=== PATIENT | female | born 1970 | race Caucasian/White ===

== ENCOUNTER 2020-10-08 12:12 | Emergency (ER) | payer OTHER, SELFPAY ==
[2020-10-08 12:27] VITALS: BP 130/81; PULSE 110; RESP 20; TEMP 36.6; O2SAT 99
[2020-10-08 13:00] LABS: Basophils Absolute Auto 0.1 K/mm3 (0.0-0.1); Eosinophils Absolute Auto 0.1 K/mm3 (0-0.3); Eosinophils Percent Auto 1.8 % (0-4.4); Hematocrit 40.4 % (37.0-47.0); Hemoglobin 12.8 g/dL (12.0-15.0); Immature Granulocyte Absolute 0.01 K/mm3 (0.00-0.031); Immature Granulocyte Percent A 0.2 % (0-0.5); Lymphocytes Absolute Auto 1.31 K/mm3 (0.9-3.2); Lymphocytes Percent Auto 26.4 % (18.3-44.2); Mean Corpuscular HGB Conc 31.7 g/dl (32-36); Mean Corpuscular Hemoglobin 30.3 pg (26-34); Mean Corpuscular Volume 95.7 fl (80-100); Monocytes Absolute Auto 0.4 K/mm3 (0.1-0.6); Monocytes Percent Auto 7.7 % (2.6-8.5); Neutrophils Absolute Auto 3.1 K/mm3 (1.3-6.7); Neutrophils Percent Auto 62.9 % (45.5-73.1); Platelet Count Result 260 k/mm3 (150-375); Red Blood Count 4.22 M/mm3 (4.2-5.4); Red Cell Distribution Width 12.7 % (11.5-14.5)
[2020-10-08 13:04] LABS: Add Urine Microscopic? YES; Appearance Urine Clear (Clear); Bacteria Urine Trace /hpf; Bilirubin Urine Negative (Negative); Blood Urine 1+ (Negative); Color Urine Straw (Yellow); Glucose Urine UA Negative (Negative); Ketones Urine Negative (Negative); Leukocyte Esterase Ur Negative LEU/UL (Negative); Nitrate Urine Negative (Negative); Protein Urine Negative (Negative); Specific Grav Ur 1.009 (1.001-1.035); Squamous Epithelial Cell Urine Moderate /hpf (Few); Urobilinogen Urine Negative mg/dL (<2.0); WBC Urine 0-3 /hpf
--- NOTE | 2020-10-08 13:05 | ED.PSYCH ---
HPI - Psych General Chief Complaint: Psychiatric Symptoms Stated Complaint: psych eval Time Seen by Provider: 10/08/20 12:13 History of Present Illness HPI Narrative: Patient is a 49-year-old female with multiple personalities that presents to the ER with her therapist for concerns of suicidal ideation. Apparently the patient has 1 altered personality that wants to jump off of a bridge and has been making plans to kill the patient. She has deactivated the GPS in the patient's cell phone so she can be tracked or found. There are multiple other altered personalities that also want the patient to kill herself. 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 While in the therapist office prior to coming to the ER patient's suicidal personality came out and pulled out a razor blade and made an attempt to cut herself. Patient does have some superficial cuts from razor blade to her upper abdomen. Last hospitalization for suicidal ideation was 20 years ago. Patient reports she has been noncompliant with her mental health medication. Related Data Home Medications Medication Instructions Recorded Confirmed No Home Medications 10/08/20 10/08/20 Allergies Allergy/AdvReac Type Severity Reaction Status Date / Time No Known Allergies Allergy Verified 10/08/20 12:41 Review of Systems Review of Systems: All systems reviewed & are unremarkable except as noted in HPI and below Constitutional: Constitutional: Denies chills, Denies fever(s) and Denies weakness Cardiovascular: Cardiovascular: Denies chest pain, Denies rapid heart rate and Denies radiating jaw, neck or arm pain Gastrointestinal: Gastrointestinal: Denies abdominal pain, Denies nausea and Denies vomiting Integumentary/Breasts: Comments: Superficial cuts to abdomen. Psychiatric: Psychiatric: Denies anxiety, Reports depression, Denies homicidal ideation and Reports suicidal ideation PMFSH Past Medical History Medical History (Updated 10/08/20 @ 23:14 by Derik Verdin MD) Anorexia Depression Multiple personality disorder Surgical History Surgical History (Updated 10/08/20 @ 23:14 by Deirk Verdin MD) History of nephrectomy Social History Social History Substance use type: does not use Gender identity (if verbalized by the patient): Female Exam Narrative: Exam Narrative: GENERAL: Well-appearing, well-nourished, and in no acute distress. HEAD: Normocephalic, atraumatic. EYES: PERRL and EOMI. ENT: Mucous membranes moist. Bandage left cheek CHEST: Clear to auscultation. No respiratory distress. HEART: Regular rate and rhythm. Normal peripheral pulses. ABDOMEN: Soft, nontender, nondistended, superficial abrasions to the upper abdomen that were self-inflicted.. EXTREMITIES: Normal range of motion. No edema. SKIN: Warm, dry, no rash. NEURO: Alert and oriented x3. PSYCH: Normal mood and affect. Denies SI or HI at this time. Not currently responding to any internal stimuli and apparently is not acting as one of her altered personalities. Course Course Emergency Course: Crisis has been out and evaluated the patient and multiple alters including the ones that were most suicidal. Between the protective services social worker and the patient's therapist who is been present throughout the duration of the ED visit a safety contract has been made with the patient as well as the major player alters. Vital Signs Vital signs: Vital Signs Temperature 97.8 F 10/08/20 12:27 Pulse Rate 110 H 10/08/20 12:27 Respiratory Rate 20 10/08/20 12:27 Blood Pressure 130/81 10/08/20 12:27 Pulse Oximetry 99 10/08/20 12:27 Temperature 97.8 F 10/08/20 12:27 Pulse Rate 98 10/08/20 18:55 Respiratory Rate 20 10/08/20 18:55 Blood Pressure 128/80 10/08/20 18:55 Pulse Oximetry 99 10/08/20 18:55 MDM - Psych Lab Data Result diagrams: 10/08/20 12:52
[2020-10-08 13:11] LABS: Ethanol < 10 mg/dL (<10)
[2020-10-08 13:12] LABS: Alanine Aminotransferase 15 U/L (4-35); Albumin Level 4.4 g/dL (3.5-5.1); Alkaline Phosphatase 68 U/L (38-126); Anion Gap 5 mmol/L (8-16); Aspartate Amino Transferase 25 U/L (14-36); Bilirubin,Total 0.5 mg/dL (0.2-1.3); Blood Urea Nitrogen 13 mg/dL (7-17); Calcium 9.1 mg/dL (8.4-10.2); Carbon Dioxide 28 mmol/L (22-30); Chloride 104 mmol/L (98-107); Estimated Glomerular Filt Rate > 60; Glucose 94 mg/dL (65-105); Potassium 4.5 mmol/L (3.4-5.0); Sodium 137 mmol/L (137-145)
[2020-10-08 13:43] LABS: Thyroid Stimulating Hormone 0.787 uIU/mL (0.465-4.680)
[2020-10-08 13:51] LABS: Pregnancy On Board Control Positive; Urine Pregnancy Test Negative
[2020-10-08 14:00] LABS: Amphetamine Screen Urine Negative (Negative); Barbiturate Screen Urine Negative (Negative); Benzodiazepines Screen Urine Negative (Negative); Cannabinoid Screen Urine Negative (Negative); Cocaine Screen Urine Negative (Negative); Methadone Screen Urine Negative (Negative); Opiate Screen Urine Negative (Negative); Phencyclidine Screen Urine Negative (Negative)
[2020-10-08 18:55] VITALS: BP 128/80; PULSE 98; RESP 20; O2SAT 99
== END 2020-10-08 18:56 | disposition home or self-care (01) ==
PROVIDERS: Emergency Provider Emergency Medicine
DX: F44.81 Dissociative identity disorder (principal); F32.9 Major depressive disorder, single episode, unspecified; Z90.5 Acquired absence of kidney
CPT/HCPCS: 36415; 80053; 80307; 81001; 81025; 84443; 85025; 99284

== ENCOUNTER 2023-09-01 18:07 | Emergency (ER) | payer OTHER, SELFPAY ==
--- NOTE | ~2023-09-01 | XR_ITS ---
EXAMINATION: XR knee LT min 4V DATE: 09/01/2023 18:25 INDICATION: Left knee pain. TECHNIQUE: 4 views of left knee were obtained. COMPARISON: None. FINDINGS: Bone alignment is normal. No fracture. There is mild tricompartmental osteoarthritis. No kn ee joint effusion. IMPRESSION: 1. Mild left knee osteoarthritis. Reviewed, dictated and finalized at location E.
[2023-09-01 18:12] VITALS: BP 117/74; PULSE 106; RESP 20; TEMP 36.6; O2SAT 100
--- NOTE | 2023-09-01 18:27 | ED.LOWEXIN ---
HPI - Extremity Injury (Lower) General Chief Complaint: Extremity Injury, Lower Stated Complaint: left knee pain and swelling Time Seen by Provider: 09/01/23 18:18 History of Present Illness HPI Narrative: 52-year-old female with a history of depression, nephrectomy presents to the emergency department with left knee pain for 1 day. Patient states she has been having some intermittent problems with her left knee, however yesterday after she did some agility training with her shoulder the she walked to her car in the parking lot and felt some pain to the posterior aspect of her knee. States she took 1 dose of Tylenol this morning without improvement. She has been icing and resting without improvement. She reports pain with flexion and ambulation. Pain is improved with extension of her knee. Denies pain to the remainder of her extremity, denies lower extremity edema. No history of DVT, denies recent long car or plane rides, no recent surgeries or hospitalizations. Related Data Home Medications Medication Instructions Recorded Confirmed No Home Medications 10/08/20 10/08/20 Allergies Allergy/AdvReac Type Severity Reaction Status Date / Time No Known Allergies Allergy Verified 09/01/23 18:14 Review of Systems Review of Systems: CONSTITUTIONAL: Denies fever, chills, or sweats. EYES: Denies visual changes, redness, or discharge. ENT: Denies rhinorrhea, congestion, sore throat, or otalgia. CARDIOVASCULAR: Denies chest pain, palpitations, or edema. RESPIRATORY: Denies cough or dyspnea. GASTROINTESTINAL: Denies abdominal pain, nausea, vomiting, or diarrhea. GENITOURINARY: Denies dysuria or hematuria. SKIN: Denies rash or itching. MUSCULOSKELETAL: See HPI NEUROLOGIC: Denies headache, numbness, or weakness. PSYCHIATRIC: Denies anxiety or depression. [facility] Past Medical History Medical History Anorexia Depression Multiple personality disorder Surgical History Surgical History History of nephrectomy Social History Social History Substance use type: does not use Gender identity (if verbalized by the patient): Female Exam Narrative: GENERAL: Well-appearing, well-nourished, and in no acute distress. HEAD: Normocephalic, atraumatic. NECK: Supple. CHEST: Clear to auscultation. No respiratory distress. HEART: Regular rate and rhythm. No murmur heard. Normal peripheral pulses. EXTREMITIES: LLE: Tenderness to the left popliteal fossa without obvious deformity or overlying skin changes. Full active and passive range of motion of knee. Negative anterior posterior drawer. No laxity of varus or valgus stress. No tenderness remainder of lower extremity. No edema. DP pulse 2 +. Sensation intact. Negative Homans. No warmth or erythema to knee. No effusion. SKIN: Warm, dry, no rash. NEURO: No focal deficits. Alert and oriented x3 Course Vital Signs Vital signs: Vital Signs Temperature 98 F 09/01/23 18:12 Pulse Rate 106 H 09/01/23 18:12 Respiratory Rate 20 09/01/23 18:12 Blood Pressure 117/74 09/01/23 18:12 Pulse Oximetry 100 09/01/23 18:12 Oxygen Delivery Room Air 09/01/23 18:12 Temperature 98 F 09/01/23 18:12 Pulse Rate 106 H 09/01/23 18:12 Respiratory Rate 20 09/01/23 18:12 Blood Pressure 117/74 09/01/23 18:12 Pulse Oximetry 100 09/01/23 18:12 Oxygen Delivery Room Air 09/01/23 18:12 MDM - Extremity Injury (Lower) MDM Narrative Medical decision making narrative: 52-year-old female presents emergency department for left posterior knee pain for 1 day. Triage vital significant for tachycardia 106, otherwise unremarkable. Exam is significant for the above. She is neurovascularly intact. X-rays of the knee show mild osteoarthritis. Given area of pain, D-dimer lab work obtained wh
[2023-09-01] MEDS: ACETAMINOPHEN 500 MG TABLET 1000 MG PO (19:16)
[2023-09-01 19:28] LABS: Basophils Absolute Auto 0.1 K/mm3 (0.0-0.1); Basophils Percent Auto 0.7 % (0.2-1.2); Eosinophils Absolute Auto 0.2 K/mm3 (0-0.3); Eosinophils Percent Auto 2.4 % (0-4.4); Hematocrit 38.1 % (37.0-47.0); Hemoglobin 12.4 g/dL (12.0-15.0); Immature Granulocyte Absolute 0.01 K/mm3 (0.00-0.031); Immature Granulocyte Percent A 0.1 % (0-0.5); Lymphocytes Absolute Auto 2.65 K/mm3 (0.9-3.2); Lymphocytes Percent Auto 38.1 % (18.3-44.2); Mean Corpuscular HGB Conc 32.5 g/dl (32-36); Mean Corpuscular Hemoglobin 30.5 pg (26-34); Mean Corpuscular Volume 93.6 fl (80-100); Mean Platelet Volume 9.4 fl (7.4-10.4); Monocytes Absolute Auto 0.4 K/mm3 (0.1-0.6); Monocytes Percent Auto 6.3 % (2.6-8.5); Neutrophils Absolute Auto 3.6 K/mm3 (1.3-6.7); Neutrophils Percent Auto 52.4 % (45.5-73.1); Platelet Count Result 292 k/mm3 (150-375); Red Blood Count 4.07 M/mm3 (4.2-5.4); Red Cell Distribution Width 12.8 % (11.5-14.5)
[2023-09-01 19:39] LABS: Prothrombin Time 13.7 Seconds (11.1-14.7)
[2023-09-01 19:40] LABS: Partial Thromboplastin Time 27.9 Seconds (22.3-36.8)
[2023-09-01 19:47] LABS: D Dimer < 0.27 ug/mL (<0.48)
[2023-09-01 19:51] LABS: Anion Gap 3 mmol/L (4-12); Blood Urea Nitrogen 25 mg/dL (7-17); Calcium 9.7 mg/dL (8.4-10.2); Carbon Dioxide 30 mmol/L (22-30); Chloride 107 mmol/L (98-107); Estimated CRCL calculation 62 ml/min; Estimated Glomerular Filt Rate > 60; Glucose 98 mg/dL (65-110); Potassium 4.1 mmol/L (3.4-5.0); Sodium 140 mmol/L (137-145)
== END 2023-09-01 20:26 | disposition home or self-care (01) ==
PROVIDERS: Emergency Provider Physician Assistant
DX: M25.562 Pain in left knee (principal); Z90.5 Acquired absence of kidney; M17.12 Unilateral primary osteoarthritis, left knee
CPT/HCPCS: 36415; 73564; 80048; 85025; 85380; 85610; 85730; 99283; A9270

== ENCOUNTER 2024-01-27 08:00 | Outpatient (RCR) | payer OTHER, SELFPAY ==
--- NOTE | 2023-12-27 13:36 | OPREHPOC ---
Outpatient Therapy Plan of Care This is a Multidisciplinary Plan of Care that may contain components documented by all disciplines (PT, OT, and ST.) PT Problem 1 PT Problem #1 Knowledge Deficit PT Goal 1 Goal / Goal Update *indep with HEP Target Visit 8 PT Problem 2 PT Problem #2 Pain PT Goal 1 Goal / Goal Update 1* pt report pain at worst rating of 2/10 2* pt report time of NO pain in knee 3* self assessment LE functional scale of 18% limitation in activity level Target Visit 8 PT Problem 3 PT Problem #3 Impaired Strength PT Goal 1 Goal / Goal Update increase strength of L hip and knee, to improve stability and support to knee 1* mat exercises x 20 reps with good stability 2* single leg standing x 20 seconds with goot stability Target Visit 8
--- NOTE | 2023-12-27 13:36 | PTOPEVAL1 ---
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 The same thing happened about 6 months ago resolved without any treatment for it. LE functional scale of 29% limitation in activity level. Pain has decreased since onset and her activity is returning to her normal activity, but still having some pain. With the evaluation; she has weakness over L hip and knee, with single leg standing time of 4 seconds; good flexibility of hip and knee without pain; poor standing position of hip and knee with hip IR and medial patellar placement; Skilled PT services are indicated for modalities for pain, therapeutic exercises to strengthen hip and knee with education for HEP and self care of pain. Plan of Care Interventions Electrical Stimulation,Hot Pack/Cold Pack,Manual Therapy,Neuro Re-education,Patient Education,Therapeutic Activities,Therapeutic Exercise,Ultrasound,Other Other Interventions taping PT Services Indicated Yes Treatment Frequency and 1-2x/wk for 8 visits Duration These treatments will address the objective and functional deficits as defined above. The patient will be advanced safely and appropriately in order for the patient to progress towards his/her prior level of function. Additional exercises will be introduced and as well as a comprehensive home exercise program upon discharge, if needed, ?to ensure carryover of functional gains achieved in the clinic. This treatment plan has been reviewed and agreement upon by the patient.
--- NOTE | 2024-01-13 07:33 | PCPTNOTE ---
Called and canceled due to migraine. AKS
--- NOTE | 2024-01-27 09:02 | PTOPDC ---
Assessment and note entered by Steph Ferrera, PT Discharge Report Assessment Status Discharge Diagnosis L knee pain ICD-10 Condition Codes (PT) Pain in left knee M25.562 Onset Dec 05, 2023 Subjective Information going to pain management for back in consult in Nov; knee is better, not swelling as much, but still not able to run through an entire dog agility course, 2-3 minutes of running. when on vacation--more driving and walking, knee was swollen over the front and back of the knee; if I cane, Want to continue therapy to get knee stronger and be able to run agility easier; Reported Pain Level Pain Score Self Report Additional Pain Score Comments pain range in the past week 0-7/10 increase pain: running, stairs decrease pain: sit/rest, exercises, ice, tylenol about 1x/day; kinesiotape less swelling in knee kinesiotape Y over knee- educated pt on how to apply Assessment PT Clinical Summary Rosa has received 7 PT sessions. Compared to the initial evaluation: pain from 1-4/10 to 0-7/10 with increased activity level and return to dog agility classes; self assessment rating with LE functional scale from 29% to 26% limitation in activity level; increase strength of L hip and knee; education for HEP and pain management. The goals were partially met. Discharge PT. She is to continue with her HEP and increase running as tolerated, using knee brace and kinesiotape PRN. Plan of Care PT Services Indicated No
== END 2024-01-27 11:50 | disposition home or self-care (01) ==
LOC: ANHPT 08:00
PROVIDERS: Visit Provider Physician Assistant Surgical
DX: M25.562 Pain in left knee (principal)
CPT/HCPCS: 97110; 97140; 97161; 97530

== ENCOUNTER 2024-05-01 11:54 | Emergency (ER) | payer OTHER, SELFPAY ==
--- NOTE | ~2024-05-01 | CT_ITS ---
History: Remote history of a fall PROCEDURE: CT cervical spine without intravenous contrast. COMPARISON: None TECHNIQUE: Multiple contiguous axial images of the cervical spine were performed without the administration of i ntravenous contrast. DLP: 141 mGy-cm FINDINGS: Straightening of the normal curvature of the cervical spine is identified, likely muscular in origin. No acute fractures are present. The bilateral lung apices are unremarkable. No soft tissue abnormality is present. The airway is patent. Impression: Straightening of the normal curvature of the cervical spine, likely muscular in origin. No acute fracture. Reviewed, dictated and finalized at location A. BIT BUILDER Impression: Straightening of the normal curvature of the cervical spine, likely muscular in origin. No acute fracture.
--- NOTE | ~2024-05-01 | CT_ITS ---
History: Remote history of a fall PROCEDURE: CT head without contrast. COMPARISON: None TECHNIQUE: Axial imaging of the head performed from the skull base to the vertex without IV contrast. Sagittal a nd coronal reformations obtained. DLP: 681 mGy-cm FINDINGS: The ventricles are normal in size, shape and position. There is no mass, mass effect or midline shift. There is no abnormal extra-axial fluid collection or intracranial hemorrhage. Visualized paranasal sinuses are clear. The mastoid air cells are well aerated. No acute displaced fractures within the overlying cranium. Impression: No acute intracranial hemorrhage or suspicious mass effect. Reviewed, dictated and finalized at location A. RONMENTAL ENGINEERING ASSISTANT Impression: No acute intracranial hemorrhage or suspicious mass effect.
--- OUTSIDE RECORDS SUMMARY | 2024-05-01 11:58 | XMS_ITS | Referral Summary ---
Author Organization [facility]Care Care Team Providers Care Environmental Solutions Engineer Name Role Phone Kimberly Lozano MD Primary Care Prov ider Encounters Date Type Department Care Team Description 04/24/2024 7:26 AM DESIGNER ARCHITECT - 04/24/2024 11:59 PM DESIGNER ARCHITECT Hospital Encounter [facility] [address] [place] [address] [facility] [address] [place] [address] Bradford Tapia MD Lumbar radiculopathy (Primary Dx) Discharge Disposition: Discharge to home or self care 02/14/2024 9:07 PM DESIGNER ARCHITECT - 02/14/2024 11:59 PM DESIGNER ARCHITECT Hospital Encounter [facility] [address] [place] [id number] Discharge Disposition: Discharge to home or self care 02/14/2024 2:50 PM DESIGNER ARCHITECT - 02/14/2024 11:59 PM DESIGNER ARCHITECT Hospital Encounter [facility] [address] [place] [address] [facility] [address] [place] [address] Bradford Tapia MD Lumbar radiculopathy Discharge Disposition: Discharge to home or self care 02/11/2024 Telephone [facility] [address] [place] [address] [facility] [address] [place] [address] Bradford Tapia MD PM[facility] Preprocedure 02/05/2024 12:40 PM DESIGNER ARCHITECT - 02/05/2024 11:59 PM DESIGNER ARCHITECT Hospital Encounter [facility] [address] [facility] [address] [place] [address] Bradford Tapia MD Lumbar radiculopathy (Primary Dx) Discharge Disposition: Discharge to home or self care from Last 3 Months Allergies Active Allergy Reactions Criticality Noted Date Comments Bupropion Nausea & Vomiting Low 11/29/2022 Medications acetaminophen (TYLENOL) 325 mg tablet Take 1 tablet (325 mg total) by mouth every 4 (four) hours as needed Active cyanocobalamin (Vitamin B-12) 100 mcg tablet Take 1 tablet (100 mcg total) by mouth daily Active famotidine (PEPCID) 20 mg tablet Take 1 tablet twice a day by oral route. 01/25/2020 Active fexofenadine (DRAKE) 60 mg tablet Take 1 tablet (60 mg total) by mouth daily Active fluticasone propionate (FLONASE) 50 mcg/actuation nasal spray SPRAY 1 SPRAY INTO EACH NOSTRIL EVERY DAY Active promethazine (PHENERGAN) 12.5 mg tablet TAKE 1-2 TABLETS BY MOUTH ONCE DAILY NEEDED FOR NAUSEA/MIGRA INE 01/30/2024 Active SUMAtriptan (IMITREX) 50 mg tablet TAKE 1 TABLET BY MOUTH AT ONSET OF HEADACHE. MAY REPEAT IN 24 HOURS 11/29/2023 Active FLUoxetine (PROzac) 20 mg tablet Take 2 tablets (40 mg total) by mouth daily 03/17/2024 Active Active Problems Problem Noted Date Diagnosed Date Lumbar radiculopathy 02/14/2024 Non-functioning kidney 11/26/2022 Right wrist pain 11/26/2022 Left wrist pain 11/26/2022 Carpal tunnel syndrome, bilateral 11/26/2022 Carpal tunnel syndrome, left 11/26/2022 Urinary tract infection without hematuria 2020 Eating disorder 01/23/2020 Health maintenance alteration 11/05/2019 Migraine 11/05/2019 Depressive disorder 06/27/2018 Social History Tobacco Use Types Packs/Day Years Used Date Smoking Tobacco: Never Smokeless Tobacco: Never Tobacco Cessation:Counseling Given: Not Answered AUDIT-C Answer Date Recorded Q1: How often do you have a drink containing alcohol? Never 04/24/2024 Q2: How many drinks containi ng alcohol do you have on a typical day when you are drinking? Patient does not drink Q3: How often do you have si x or more drinks on one occasion? Never 04/24/2024 Personal Safety Answer Date Recorded Have you ever been in or are you currently in a harmful physical or emotional relationship or is someone making you feel afraid or unsafe? Denies 11/29/2022 Comments No Sex and Gender Information Value Date Recorded Sex Assigned at Not on file Legal Sex Female 1:45 AM DESIGNER ARCHITECT Gender Identity Not on file Sexual Orientation Not on file Last Filed Vital Signs Vital Sign Reading Time Taken Comments Blood Pressure 105/68 04/24/2024 7:37 AM DESIGNER ARCHITECT Pulse 83 04/24/2024 7:37 AM DESIGNER ARCHITECT Temperature 36.5 ??C (97.7 ??F) 04/24/2024 7:37 AM CS T Respiratory Rate 14 04/24/2024 7:37 AM DESIGNER ARCHITECT Oxygen Saturation 99% 04/24/2024 7:37 AM DESIGNER ARCHITECT Inhaled Oxygen Concentration - - Weight 59 kg (130 lb) 02/14/2024 3:01 PM DESIGNER ARCHITECT Height 165.1 cm (5' 5 ) 02/14/2024 3:01 PM DESIGNER ARCHITECT Body Mass Index 21.63 02/14/2024 3:01 PM DESIGNER ARCHITECT Plan of Treatment Not on file Goals Goal Patient Goal Type Associated Problems Recent Progress Patient-Stated? Author CCM Chronic Pain Care Plan Chronic Care Management On track(2024 7:39 AM DESIGNER ARCHITECT) No Farrah Vera, RN Note: Problem: Chronic Pain Goals: 1. Minimize further functional decline 2. Maximize quality of life 3. Control pain Strategies: - Activity/exercise program recommendation - Conservative stepwise pain medicine strategy with multi-disciplinary approach - Recommend healthy lifestyle strategies and compensatory methods as needed Procedures Procedure Name Priority Date/Time Associated Diagnosis Comments NEURO MR OUTSIDE REFERENCE Routine 02/14/2024 9:07 PM DESIGNER ARCHITECT PAIN MGMT IMAGING LUMBAR/SACRAL SELECTIVE NERVE ROOT INJ (TFE) LEFT Schedule Routine, Read Routine (OP Routine) 02/14/2024 4:27 PM DESIGNER ARCHITECT Lumbar radiculopathy from Last 3 Months Results * Neuro MR Outside Reference (02/14/2024 9:07 PM DESIGNER ARCHITECT) Impressions [facility] - 02/14/2024 9:07 PM DESIGNER ARCHITECT These images are for Reference purposes only and have not been reviewed by [facility]. ??There will be no report generated by a [facility] Radiologist. Narrative [facility] - 02/14/2024 9:07 PM DESIGNER ARCHITECT EXAMINATION: ??Images For Reference Purposes Only Bradford SOTELO MRI PROCEDURES Fi nal Result [facility] * Imaging Lumbar/Sacral Selective Nerve Root INJ (TFE) Left (45873) (02/14/2024 4:27 PM DESIGNER ARCHITECT) Narrative [facility] - 02/14/2024 4:27 PM DESIGNER ARCHITECT The images from this study are not interpreted by Radiology. ??Please refer to the physician's procedure / OR operative note. Bradford Gupta MD IMG PAIN MGMT PROCEDU RES Final Result Performing Organization Address City/[facility]/ZIP Co de Phone Number [facility] from Last 3 Months Insurance [facility] Care Teams Environmental Solutions Engineer Relationship Specialty Start Date End Date Kimberly Lozano MD [address] [place] [id number] PCP - General Family Medicine 11/08/22
--- OUTSIDE RECORDS SUMMARY | 2024-05-01 11:58 | XMS_ITS | Referral Summary ---
Author Organization [facility] Posterous Address [address] [place] [address] Care Team Providers Care Golf Course Manager Name Role Phone Kimberly Lozano MD Primary Care Provider + Source Comments [facility],non-owned Affiliates and Associated Physician Practices is amultiple site organization consisting of ambulatory clinics and hospital sitesin [place], [place], [place] and [place]. This disclosure is being madepursuant to the Care Everywhere program and may not contain all information available regarding this patient. Last updated 17.[facility]erous Allergies Active Allergy Reactions Criticality Noted Date Comments Adhesive Sensitivity Rash Medium 05/03/2020 Medications * Be aware that medications may not be up to date on this document. Alwaysverify current medications with the patient. Medication Sig Dispensed Refills Start Date End Date Status SUMAtriptan (IMITREX) 25 MG tablet Take 25 mg by mouth as needed 01/07/2020 Active ARIPiprazole (ABILIFY) 5 MG tablet Take 5 mg by mouth once daily 04/20/2020 Active FLUoxetine (PROZAC) 40 MG capsule Take 40 mg by mouth once daily 04/20/2020 Active prazosin (MINIPRESS) 1 MG capsule Take 1 mg by mouth at bedtime 04/20/2020 Active fexofenadine (DRAKE) 60 MG tablet Take 60 mg by mouth once daily Active melatonin 3 MG tablet Take 6 mg by mouth at bedtime Active cyanocobalamin (VITAMIN B-12) 100 MCG tablet Take 100 mcg by mouth once daily Active acetaminophen (TYLENOL) 325 MG tablet Take 325 mg by mouth every 4 hours as needed for Fever or Pain Maximum allowable Acetaminophen amount = 4 Grams (4000 mg) / 24 hours. Active Active Problems Problem Noted Date Diagnosed Date Urinary tract infection without hematuria 2020 Non-functioning kidney Immunizations Name Administration Dates Next Due INFLUENZA VACCINE, CELL CULT URE, QUADR. (FLUCELVAX QUADRIVALENT; 6MO+) (CCIIV4) 01/23/2020 Social History Tobacco Use Types Packs/Day Years Used Date Smoking Tobacco: Never Smokeless Tobacco: Never Alcohol Use Standard Drinks/Week Comments Not Currently 0 (1 standard drink = 0.6 oz pur e alcohol) Sex and Gender Information Value Date Recorded Sex Assigned at Not on file Gender Identity Not on file Sexual Orientation Not on file Last Filed Vital Signs Vital Sign Reading Time Taken Comments Blood Pressure 133/82 06/10/2020 7:56 AM WATER TANKER DRIVER Pulse 75 06/10/2020 7:56 AM WATER TANKER DRIVER Temperature 36.1 ??C (97 ??F) 06/10/2020 7:56 AM WATER TANKER DRIVER Respiratory Rate 18 05/27/2020 11:15 AM WATER TANKER DRIVER Oxygen Saturation 100% 06/10/2020 7:56 AM WATER TANKER DRIVER Inhaled Oxygen Concentration - - Weight 55.8 kg (123 lb) 06/10/2020 7:56 AM WATER TANKER DRIVER Height 165.1 cm (5' 5 ) 06/10/2020 7:56 AM WATER TANKER DRIVER Body Mass Index 20.47 06/10/2020 7:56 AM WATER TANKER DRIVER Functional Status Functional Status Response Date of Assess ment Is person deaf or have serious hearing difficult y? No 05/27/2020 Is person blind or have serious difficulty seein g? No 05/27/2020 Does person have serious dif ficulty walking/climbing stairs? No 05/27/2020 Does person have difficulty dressing/bathing? No 05/27/2020 Does person have difficulty doing errands alone? No 05/27/2020 Cognitive Status Response Date of Assessm ent Does person have difficulty concentrating/remembering/making decisions? No 05/27/2020 Plan of Treatment Not on file Advance Directives * Full Code (Latest Code Status on File) Date Activated Date Inactivated Comments 05/26/2020 1:07 PM 05/27/2020 4:26 PM Care Teams Golf Course Manager Relationship Specialty Start Date End Date Kimberly Lozano MD [address] [place] [id number] PCP - General Family Medicine 03/14/20
--- OUTSIDE RECORDS SUMMARY | 2024-05-01 11:58 | XMS_ITS | CONTINUITY OF CARE DOCUMENT ---
Author Name [email or web address] joonshashank Address Unknown Organization [facility] Address [address] [address] [place] [address] Phone [phone] Care Team Providers Care Ditch Rider Name Role Phone Jimmie COBOS, Voilette Murphy Unavailable RANDY JUAN MD Unavailable YESSICA COBOS, RANDY Unavailable [phone] INSURANCE PROVIDERS Payer name Policy type / Coverage type [facility] [place] [employer] [place] MED[place] (2) Medicaid [id number]
--- OUTSIDE RECORDS SUMMARY | 2024-05-01 11:58 | XMS_ITS | Patient Health Summary ---
Author Organization [facility] Address [address] [place] [address] Care Team Providers Care Maintenance Service Supervisor Name Role Phone Kimberly Lozano MD Primary Care Provider + Note from [facility],non-owned Affiliates and Associated Physician Practices is amultiple site organization consisting of ambulatory clinics and hospital sitesin [place], [place], [place]. This disclosure is being madepursuant to the Care Everywhere program and may not contain all information available regarding this patient. Last updated 17.[facility] Allergies * Adhesive Sensitivity(Rash) -Medium Criticality * Skin Adhesives(Rash) -Medium Criticality,Inactive Medications * Be aware that medications may not be up to date on this document. Alwaysverify current medications with the patient. * SUMAtriptan (IMITREX) 25 MG tablet(Started 01/07/2020) Take 25 mg by mouth as needed * ARIPiprazole (ABILIFY) 5 MG tablet(Started 04/20/2020) Take 5 mg by mouth once daily * FLUoxetine (PROZAC) 40 MG capsule(Started 04/20/2020) Take 40 mg by mouth once daily * prazosin (MINIPRESS) 1 MG capsule(Started 04/20/2020) Take 1 mg by mouth at bedtime * fexofenadine (DRAKE) 60 MG tablet Take 60 mg by mouth once daily * melatonin 3 MG tablet Take 6 mg by mouth at bedtime * cyanocobalamin (VITAMIN B-12) 100 MCG tablet Take 100 mcg by mouth once daily * acetaminophen (TYLENOL) 325 MG tablet Take 325 mg by mouth every 4 hours as needed for Fever or Pain Maximum allowable Acetaminophen amount = 4 Grams (4000 mg) / 24 hours. Active Problems Problem Noted Date Diagnosed Date Urinary tract infection without hematuria 2020 Non-functioning kidney Immunizations * INFLUENZA VACCINE, CELL CULTURE, QUADR. (FLUCELVAX QUADRIVALENT; 6MO+) (CCIIV4)(Given 01/23/2020) Social History Tobacco Use Types Packs/Day Years [...] Comments Blood Pressure 133/82 06/10/2020 7:56 AM DIEING OUT MACHINE OPERATOR Pulse 75 06/10/2020 7:56 AM DIEING OUT MACHINE OPERATOR Temperature 36.1 ??C (97 ??F) 06/10/2020 7:56 AM DIEING OUT MACHINE OPERATOR Respiratory Rate 18 05/27/2020 11:15 AM DIEING OUT MACHINE OPERATOR Oxygen Saturation 100% 06/10/2020 7:56 AM DIEING OUT MACHINE OPERATOR Inhaled Oxygen Concentration - - Weight 55.8 kg (123 lb) 06/10/2020 7:56 AM DIEING OUT MACHINE OPERATOR Height 165.1 cm (5' 5 ) 06/10/2020 7:56 AM DIEING OUT MACHINE OPERATOR Body Mass Index 20.47 06/10/2020 7:56 AM DIEING OUT MACHINE OPERATOR Procedures * PREPARE RBC LEUKOREDUCED UNIT(Performed 05/28/2020) * CBC W/O DIFFERENTIAL(Performed 05/27/2020) * BASIC METABOLIC PANEL (CALCIUM TOTAL)(Performed 05/27/2020) * PATHOLOGY TISSUE(Performed 05/26/2020) Performed for Non-functioning kidney * PERIPHERAL IV NOTE(Performed 05/26/2020) * ENDOTRACHEAL TUBE NOTE(Performed 05/26/2020) * MA LAP, RADICAL NEPHRECTOMY(Performed 05/26/2020) Performed for Non-functioning kidney * TYPE + SCREEN PANEL(Performed 05/26/2020) * HCG URINE QUALITATIVE - POCT (IP) INTERFACED(Performed 05/26/2020) * HCG URINE QUAL POCT NOTIFICATION(Performed 05/26/2020) Performed for Pre-op examination * SARS-COV-2 (COVID-19) IN HOUSE(Performed 05/22/2020) Performed for Right renal mass, Pre-op testing * CULTURE URINE(Performed 05/03/2020) Performed for Right renal mass, Pre-op testing * TYPE + SCREEN PANEL(Performed 05/03/2020) Performed for Pre-op examination * BASIC METABOLIC PANEL (CALCIUM TOTAL)(Performed 05/03/2020) Performed for Right renal mass, Pre-op testing * CBC W AUTO DIFFERENTIAL(Performed 05/03/2020) Performed for Right renal mass, Pre-op testing * NM RENAL SCAN W FLOW AND FUNCTION(Performed 03/14/2020) Performed for Right flank pain, chronic * URINALYSIS AUTO - POINT OF CARE (AMB) SLU(Performed 02/22/2020) Performed for Hematuria, unspecified type Results * PREPARE (CROSSMATCH) RBC UNIT(S), 2 Units (05/28/2020 2:17 AM DIEING OUT MACHINE OPERATOR) Unit Description AS1 LR PRBC [facility] Unit ABO O [facility] Rh POS [facility] Product Number R02 [facility] Unit Donor # [id number] [facility] Code [id number] [facility] Blood Type Barcode 5100 [facility] Expiration Date S BLOOD BANK LAB Unit Description AS1 LR PRBC [facility] Unit ABO O [facility] Unit Rh POS [facility] Product Number R02 [facility] Unit Donor # [id number] [facility] Unit Status released [facility] Product Code [id number] [facility] Blood Type Barcode 5100 [facility] Expiration Date S BLOOD BANK LAB Blood Bank BLOOD SPECIMEN / Unknown 05/26/2020 8:23 AM DIEING OUT MACHINE OPERATOR Carlitanik EL LAB - BLOOD BANK ORDERABLES [facility] [address] [place] [address], [facility] [phone] * (ABNORMAL) CBC W/O DIFFERENTIAL (05/27/2020 5:31 AM [facility]) WBC 10.8(H) 3.5 - 10.5 10? 3 /uL 05/27/2020 6:17 AM [facility] RBC 3.83(L) 3.90 - 5.00 10? 6 /uL 05/27/2020 6:17 AM [facility] Hemoglobin 11.5(L) 12.0 - 15.5 g/dL 05/27/2020 6:17 AM [facility] Hematocrit 35.5 35.0 - 45.0 % 05/27/2020 6:17 AM [facility] MCV 92.7 81.0 - 97.0 fL 05/27/2020 6:17 AM [facility] MCH 30.0 28.0 - 34.0 pg 05/27/2020 6:17 AM [facility] MCHC 32.4 32.0 - 36.0 g/dL 05/27/2020 6:17 AM [facility] Platelet Count 196 150 - 400 10? 3 /uL 05/27/2020 6:17 AM [facility] RDW-SD 45.0 36.0 - 50.0 fL 05/27/2020 6:17 AM [facility] RDW-CV 13.3 11.2 - 14.8 % 05/27/2020 6:17 AM [facility] MPV 10.5 9.3 - 12.8 fL 05/27/2020 6:17 AM [facility] nRBC Absolute 0.00 0 10? 3 /uL 05/27/2020 6:17 AM [facility] nRBC Auto 0.0 0 /100 WBC 05/27/2020 6:17 AM [facility] Blood BLOOD SPECIMEN / Unknown Lab Venipuncture / Unknown 05/27/2020 5:31 AM DIEING OUT MACHINE OPERATOR 05/27/2020 6:09 AM DIEING OUT MACHINE OPERATOR Timmy Acevedo MD LAB - HEMATOLOGY O RDERABLES Performing Organization Address City/[facility]/ZIP Co de Phone Number [address] [address], [facility] [phone] * (ABNORMAL) BASIC METABOLIC PANEL (CALCIUM TOTAL) (05/27/2020 5:31 AM DIEING OUT MACHINE OPERATOR) Only the most recent of2 resultswithin the time period is included. BUN 11 7 - 26 mg/dL 05/27/2020 6:35 AM [facility] Creatinine 0.7 0.6 - 1.2 mg/dL 05/27/2020 6:35 AM [facility] Sodium 134(L) 136 - 145 mmol/L 05/27/2020 6:35 AM [facility] Potassium 3.9 3.5 - 4.5 mmol/L 05/27/2020 6:35 AM [facility] Chloride 103 98 - 107 mmol/L 05/27/2020 6:35 AM [facility] CO2 25 22 - 29 mmol/L 05/27/2020 6:35 AM [facility] Glucose 112 70 - 115 mg/dL 05/27/2020 6:35 AM [facility] Calcium 7.7(L) 8.4 - 10.2 mg/dL 05/27/2020 6:35 AM [facility] Anion Gap 10 8 - 18 05/27/2020 6:35 AM [facility] BUN/Creatinine Ratio 16 7 - 23 05/27/2020 6:35 AM [facility] Osmolality Calculated 278 270 - 300 mOsm/kg 05/27/2020 6:35 AM [facility] eGFR >60 >60 mL/min/1.7 3 m2 05/27/2020 6:35 AM [facility] Blood BLOOD SPECIMEN / Unknown Lab Venipuncture / Unknown 05/27/2020 5:31 AM DIEING OUT MACHINE OPERATOR 05/27/2020 6:08 AM DIEING OUT MACHINE OPERATOR Timmy Acevedo MD LAB - CHEMISTRY OR DERABLES [address] [place] [address], [facility] [phone] * PATHOLOGY TISSUE (05/26/2020 12:02 PM DIEING OUT MACHINE OPERATOR) Case Report Surgical Pathology Report ? Case: [id number] ? Authorizing Provider: ??Timmy Acevedo MD ?Collected: ? 05/26/2020 12:02 PM ? Ordering Location: ? [facility] ?Received: ?05/26/2020 01:46 PM ? Pathologist: ? Loreta Verma MD ? Specimen: ?Kidney, Right, RIGHT Kidney ? 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 Glomeruli are uninvolved with no significant glomerulosclerosis. The proximal tubules are dilated with focal cell sloughing. The large vessels show intimal thickening but no significant vasculitis. There is no evidence of malignancy. 06/01/2020 1:45 PM [facility] Clinical History 49-year-old woman with nonfunctioning right kidney and recurrent UTIs. Operative procedure: right nephrectomy. 06/01/2020 1:45 PM [facility] Gross Description The requisition and specimen(s) are identified with the patient's name, Rosa Sawyer. Received in formalin, specimen A , is a 79 g, 8.0 x 6.5 x 2.8 cm nephrectomy. Removal of the hilar staple lines exposes portions of the renal pelvis. A distinct ureter is not readily identified. Sectioning shows markedly dilated calyces lined with guillory-white flattened urothelium. There is scant renal parenchyma present on the anti-hilar aspect with minimal cortex. In areas where corticomedullary junctions are identified the cortex is 0.4 cm in thickness. No discrete masses or lesions are noted. Pre Owned Sales Manager sections are submitted as follows: A1 vascular and potential ureter margin, A2-A4 renal parenchyma. 06/01/2020 1:45 PM [facility] Disclaimer The performance characteristics of all immunohistochemical and indirect immunofluorescence stains (if any) cited in this report were determined by the Histopathology Laboratory of [facility]. Some of these tests were developed by our own laboratory and have not been cleared or approved by the US Food and Drug Administration. The FDA does not require this test to go through premarket FDA review. These tests are used for clinical purposes. They should not be regarded as investigational or for research. This laboratory is certified under the Clinical Laboratory Improvement Amendments (CLIA) as qualified to perform high complexity clinical laboratory testing. This case has been personally reviewed and interpreted by the attending (teaching) pathologist. 06/01/2020 1:45 PM [facility] Embedded Images 06/01/2020 1:45 PM [facility] Removal (Kidney, Right) 05/26/2020 12:02 PM DIEING OUT MACHINE OPERATOR 05/26/2020 1:46 PM DIEING OUT MACHINE OPERATOR Comment:Pre-op diagnosis: Non-Functioning kidney Timmy Acevedo MD LAB - PATHOLOGY/CY TOLOGY ORDERABLES [facility] [address] [place], [place] [address] [phone] * IV PLACEMENT PERFORMABLE (05/26/2020 11:02 AM DIEING OUT MACHINE OPERATOR) Narrative Albina Johnson MD - 05/26/2020 11:02 AM Maci Garcia APRN-CRNA ? 05/26/2020 11:02 AM Peripheral IV Line Placement: Patient Location: ??OR Procedure: IV start ([id number]). Procedure Section: ?? Skin Prep: Chloraprep. Orientation: right Location: hand Local Anesthetic Used? ??No Catheter Gauge: 18 Catheter Length (in): 1.25 Number of Attempts: 1. Procedure Tolerance: tolerated well. Procedure Start Time: 05/26/2020 10:34 AM. Staff Section ?? Anesthesia Provider: Albina Johnson MD, Performed the procedure Albina Johnson MD GENERAL ANESTHESIA ORDERABLES * ETT LINE PERFORMABLE (05/26/2020 11:00 AM DIEING OUT MACHINE OPERATOR) Narrative Albina Johnson MD - 05/26/2020 11:00 AM DIEING OUT MACHINE OPERATOR Maci Perry APRN-CRNA ? 05/26/2020 11:02 AM Endotracheal Tube Placement: ? Patient Location: OR. Intubation Event Date/Time: ??05/26/2020 10:31 AM Procedure: intubation ([id number]). Procedure Section: ?? Sedation: IV sedation. Indications for Airway Management: ??airway protection Procedure pretreatments used? ??No Induction: standard IV Patient Position: ??sniffing Mask Ventilation: easy. Blade Type: Hightower Blade Size: 2 Laryngoscopy View: grade 1 (full cords) Intubation Adjuncts: stylet Tube: endotracheal tube Placement: oral Tube type: cuff - inflated Tube Size (MM): 7 Depth of Insertion (CM): 21 Measured From: teeth Cuff volume (mL): ??7 Cuff Inflated With: air Number of Attempts: 1. Placement Verified By: direct visualization, bilateral breath sounds, chest auscultation and CO2 monitor CXR Findings: ETT in proper place. Tube secured with: ??adhesive tape and ETT guevara. Dentition unchanged? ??Yes Difficult Airway? ??No. Procedure Start Time: 05/26/2020 10:31 AM. Staff Section ?? Anesthesia Provider: Maci Perry, ABSEILING INSTRUCTOR-PLACEMENT OFFICER, Performed the procedure Albina Johnson MD GENERAL ANESTHESIA ORDERABLES * TYPE + SCREEN PANEL (05/26/2020 8:08 AM DIEING OUT MACHINE OPERATOR) Only the most recent of2 resultswithin the time period is included. Antibody Screen NEG 9:03 AM DIEING OUT MACHINE OPERATOR [facility] ABO Rh O POS 05/26/2020 9:03 AM DIEING OUT MACHINE OPERATOR [facility] Blood Bank BLOOD SPECIMEN / Unknown Venipuncture / Unknown 05/26/2020 8:08 AM DIEING OUT MACHINE OPERATOR 05/26/2020 8:23 AM DIEING OUT MACHINE OPERATOR Carlita Langley ABSEILING INSTRUCTOR-SCALE BALANCER LAB - BLOOD BANK ORDERABLES Performing Organization Address City/[facility]/ZIP Co de Phone Number [facility] [address] [place] [address], [place] [phone] * HCG URINE QUALITATIVE - POCT (IP) INTERFACED (05/26/2020 7:56 AM DIEING OUT MACHINE OPERATOR) HCG Qual Urine Negative Negative 05/26/2020 8:03 AM DIEING OUT MACHINE OPERATOR [facility] Urine URINE / Unknown 05/26/2020 7 :56 AM DIEING OUT MACHINE OPERATOR 05/26/2020 8:03 AM DIEING OUT MACHINE OPERATOR Timmy Acevedo MD LAB - POINT OF CAR E ORDERABLES Performing Organization Address City/[facility]/ZIP Co de Phone Number [facility] [address] [place] [address], [place] [phone] * HCG URINE QUAL POCT NOTIFICATION (05/26/2020 7:41 AM DIEING OUT MACHINE OPERATOR) Comment Notification Label Only - See Separate Report 05/26/2020 9:00 AM DIEING OUT MACHINE OPERATOR [facility] Urine URINE / Unknown 05/26/2020 7 :41 AM DIEING OUT MACHINE OPERATOR 05/26/2020 7:42 AM DIEING OUT MACHINE OPERATOR Michelle Mayorga ABSEILING INSTRUCTOR-SCALE BALANCER LAB - URINALYSIS ORDERABLES [facility] [address] [place] [address], [facility] [phone] * SARS-COV-2 (COVID-19) PRE-SURICAL/PROCEDURE (05/22/2020 10:32 AM DIEING OUT MACHINE OPERATOR) COVID-19 PCR Not detected Not detected 05/22/2020 8:14 PM DIEING OUT MACHINE OPERATOR [facility] Microbiology SPECIMEN FROM NASOPHARYNGEAL STRUCTURE / Unknown Collection / Unknown 05/22/2020 10:32 AM DIEING OUT MACHINE OPERATOR 05/22/2020 12:16 PM DIEING OUT MACHINE OPERATOR Narrative [facility] - 05/22/2020 8:14 PM DIEING OUT MACHINE OPERATOR This nucleic acid amplification assay performance was validated by [facility]. This test has been authorized by the Food and Drug administration (FDA)under an Emergency??Use Authorization (EUA). This test has been validated in accordance with the FDA's guidance document Policy for Diagnostic Testing in Laboratories Certified to perform High Complexity Testing under CLIA prior to Emergency Use Authorization for Coronavirus Disease-2019 during the Public Health Emergency issued on May 30, 2019. FDA independent review of this validation is pending. This test is only authorized for the duration of time the declaration that circumstances exist justifying the authorization of emergency use of in vitro diagnostic tests for detection of SARS-CoV-2 virus and/or diagnosis of COVID-19 infection under section 564(b)(1) of the Act, 21 U.S.C 360bbb-3 (b)(1), unless the authorization is terminated or revoked sooner. Fact Sheets for this EUA assay are available upon request. Timmy Acevedo MD LAB - MICROBIOLOGY ORDERABLES [facility] [address] [place] [address], [facility] [phone] * CULTURE URINE (05/03/2020 2:18 PM DIEING OUT MACHINE OPERATOR) Culture Urine <10,000 CFU/mL urogenital jaylyn AMA 05/05/2020 1:03 AM DIEING OUT MACHINE OPERATOR [facility] Urine URINE SPECIMEN OBTAINED BY CLEAN CATCH PROCEDURE / Unknown Collection / Unknown 05/03/2020 2:18 PM DIEING OUT MACHINE OPERATOR 05/03/2020 2:59 PM DIEING OUT MACHINE OPERATOR Timmy Acevedo MD LAB - MICROBIOLOGY ORDERABLES [facility] [address] [place], [place] [address], [facility] [phone] * CBC WITH DIFFERENTIAL (05/03/2020 2:11 PM DIEING OUT MACHINE OPERATOR) WBC 4.9 3.5 - 10.5 10? 3 /uL 05/03/2020 3:25 PM [facility] RBC 4.13 3.90 - 5.00 10? 6 /uL 05/03/2020 3:25 PM [facility] Hemoglobin 12.4 12.0 - 15.5 g/dL 05/03/2020 3:25 PM [facility] Hematocrit 38.5 35.0 - 45.0 % 05/03/2020 3:25 PM [facility] MCV 93.2 81.0 - 97.0 fL 05/03/2020 3:25 PM [facility] MCH 30.0 28.0 - 34.0 pg 05/03/2020 3:25 PM [facility] MCHC 32.2 32.0 - 36.0 g/dL 05/03/2020 3:25 PM [facility] Platelet Count 253 150 - 400 10? 3 /uL 05/03/2020 3:25 PM [facility] RDW-SD 44.9 36.0 - 50.0 fL 05/03/2020 3:25 PM [facility] RDW-CV 13.2 11.2 - 14.8 % 05/03/2020 3:25 PM [facility] MPV 10.9 9.3 - 12.8 fL 05/03/2020 3:25 PM [facility] nRBC Absolute 0.00 0 10? 3 /uL 05/03/2020 3:25 PM [facility] nRBC Auto 0.0 0 /100 WBC 05/03/2020 3:25 PM [facility] Neutrophils % 65.6 35.0 - 70.0 % 05/03/2020 3:25 PM [facility] Lymphocytes % 23.8 19.7 - 55.1 % 05/03/2020 3:25 PM [facility] Monocytes % 9.2 3.0 - 15.0 % 05/03/2020 3:25 PM [facility] Eosinophils % 0.8 0.0 - 6.0 % 05/03/2020 3:25 PM [facility] Basophil % 0.6 0.0 - 1.5 % 05/03/2020 3:25 PM [facility] Neutrophils Absolute 3.2 1.6 - 7.0 10? 3 /uL 05/03/2020 3:25 PM [facility] Lymphocyte Absolute 1.2 0.8 - 2.9 10? 3 /uL 05/03/2020 3:25 PM [facility] Monocytes Absolute 0.45 0.14 - 0.66 10? 3 /uL 05/03/2020 3:25 PM [facility] Eosinophils Absolute 0.04 0.00 - 0.45 10? 3 /uL 05/03/2020 3:25 PM [facility] Basophils Absolute 0.03 0.00 - 0.06 10? 3 /uL 05/03/2020 3:25 PM [facility] Immature Granulocytes % 0.0 0.0 - 1.0 % 05/03/2020 3:25 PM [facility] Blood BLOOD SPECIMEN / Unknown Lab Venipuncture / Unknown 05/03/2020 2:11 PM DIEING OUT MACHINE OPERATOR 05/03/2020 3:11 PM DIEING OUT MACHINE OPERATOR Timmy Acevedo MD LAB - HEMATOLOGY O RDERABLES [facility] [address] [place] [address], [facility] [phone] * BL RENAL SCAN W FLOW AND FUNCTION (03/14/2020 9:28 AM DIEING OUT MACHINE OPERATOR) Anatomical Region Laterality Modality Abdomen Nuclear Medicine 03/14/2020 1:14 PM DIEING OUT MACHINE OPERATOR Impressions 03/14/2020 1:19 PM DIEING OUT MACHINE OPERATOR 1. Normal function of the enlarged left kidney with no evidence of obstruction. 2. No significant function of the atrophied right kidney. 3. Differential function is 97% left kidney and 3% right kidney. *Reading Radiologist: Albaro Eckert on 03/14/2020 at 1:19 PM Narrative 03/14/2020 1:19 PM DIEING OUT MACHINE OPERATOR MAG3 renal scan without pharmacologic intervention. HISTORY: 49-year-old female with right flank pain and atrophy of the right kidney as seen on CT from outside facility. TECHNIQUE: An IV bolus of 7.9 mCi of Tc- 99m MAG 3 was administered. Sequential dynamic blood flow images of the abdomen were obtained in the anterior and posterior projections for 30 minutes following radiotracer injection. Whole kidney time-activity curves were produced with quantitative indices. FINDINGS: No prior study is available for comparison. The blood flow phase of the study shows normal perfusion to the left kidney with no significant perfusion to the right kidney. The left kidney appears enlarged with normal contours. There is no significant uptake in the right kidney. There is prompt uptake and excretion of the tracer from the left kidney with very minimal uptake in the right. The quantitative values are as follows: Quantitative function Left ? Right 5 ?29 ?Time to peak (mins) 11 ?>30 ?T 1/2 (mins) 97 ?3 ?Differential function (%) Procedure Note Albaro Eckert, DO - 03/14/2020 MAG3 renal scan without pharmacologic intervention. HISTORY: 49-year-old female with right flank pain and atrophy of the right kidney as seen on CT from outside facility. TECHNIQUE: An IV bolus of 7.9 mCi of Tc- 99m MAG 3 was administered. Sequential dynamic blood flow images of the abdomen were obtained in the anterior and posterior projections for 30 minutes following radiotracer injection. Whole kidney time-activity curves were produced with quantitative indices. FINDINGS: No prior study is available for comparison. The blood flow phase of the study shows normal perfusion to the left kidney with no significant perfusion to the right kidney. The left kidney appears enlarged with normal contours. There is no significant uptake in the right kidney. There is prompt uptake and excretion of the tracer from the left kidney with very minimal uptake in the right. The quantitative values are as follows: Quantitative function Left Right 5 29 Time to peak (mins) 11 >30 T 1/2 (mins) 97 3 Differential function (%) IMPRESSION 1. Normal function of the enlarged left kidney with no evidence of obstruction. 2. No significant function of the atrophied right kidney. 3. Differential function is 97% left kidney and 3% right kidney. *Reading Radiologist: Albaro Eckert on 03/14/2020 at 1:19 PM Soheila Gonzalez APRN-SCALE BALANCER NM ORDERABLES * URINALYSIS AUTO - POINT OF CARE (AMB) [facility] (02/22/2020 12:59 PM DIEING OUT MACHINE OPERATOR) Glucose UA neg Bilirubin UA POCT neg Ketones UA POCT neg Specific [place] UA 1.015 Blood Urine POCT 1+ pH UA 6.0 Protein UA neg Urobilinogen UA 3.5 Nitrite UA neg WBC UA neg Urine URINE / Unknown 02/22/2020 1 2:59 PM DIEING OUT MACHINE OPERATOR Soheila Gonzalez APRN-SCALE BALANCER LAB - POINT O F CARE ORDERABLES Care Teams Maintenance Service Supervisor Relationship Specialty Start Date End Date Kimberly Lozano MD [address] [place] [address] PCP - General Family Medicine 03/14/20
--- OUTSIDE RECORDS SUMMARY | 2024-05-01 11:58 | XMS_ITS | Clinical Summary ---
Author Organization [facility] [email or web address] Address [address] [place] [address] Care Team Providers Care Senior Project Accountant Name Role Phone Kimberly Lozano MD Primary Care Provider + Source Comments [facility],non-owned Affiliates and Associated Physician Practices is amultiple site organization consisting of ambulatory clinics and hospital sitesin [place], [place], [place] and [place]. This disclosure is being madepursuant to the Care Everywhere program and may not contain all information available regarding this patient. Last updated 17.[facility] [email or web address] Allergies Active Allergy Reactions Criticality Noted Date [...] Comments Blood Pressure 133/82 06/10/2020 7:56 AM CAN CLOSING MACHINE OPERATOR Pulse 75 06/10/2020 7:56 AM CAN CLOSING MACHINE OPERATOR Temperature 36.1 ??C (97 ??F) 06/10/2020 7:56 AM CAN CLOSING MACHINE OPERATOR Respiratory Rate 18 05/27/2020 11:15 AM CAN CLOSING MACHINE OPERATOR Oxygen Saturation 100% 06/10/2020 7:56 AM CAN CLOSING MACHINE OPERATOR Inhaled Oxygen Concentration - - Weight 55.8 kg (123 lb) 06/10/2020 7:56 AM CAN CLOSING MACHINE OPERATOR Height 165.1 cm (5' 5 ) 06/10/2020 7:56 AM CAN CLOSING MACHINE OPERATOR Body Mass Index 20.47 06/10/2020 7:56 AM CAN CLOSING MACHINE OPERATOR Plan of Treatment Health Maintenance Due Date Last Done Comments COLOGUARD (AGES 45-75) - COL ON CA SCREENING 1969 COLON MONITORING 1969 COLONOSCOPY - COLON CA SCREENING 1969 CT COLONOGRAPHY - COLON CA SCREENING 1969 Colorectal Cancer Screening 1969 FIT - COLON CA SCREENING 1969 FLEX SIG - COLON CA SCREENING 1969 LIPID TESTING 1969 MAMMOGRAM 1969 PAP SMEAR 1969 HIV SCREENING 1984 HEPATITIS C SCREENING 12/16/1987 DTAP/TDAP/TD VACCINES (1 - Tdap) 1988 HEPATITIS B VACCINE (1 of 3 - 19+ 3-dose series) 1988 PNEUMOCOCCAL VACCINE 50+ (1 of 1 - PCV) 12/21/2019 ZOSTER VACCINE (1 of 2) 12/21/2019 COVID-19 VACCINE (1 - 2023-2 5 season) 2023 INFLUENZA VACCINE (#1) 2023 01/23/2020 DEPRESSION SCREENING 04/01/2024 HIB VACCINE Aged Out No longer eligi ble based on patient's age to complete this topic HPV VACCINE Aged Out No longer eligi ble based on patient's age to complete this topic MENINGOCOCCAL (Group B) VACCINE Aged Out No longer eligible based on patient's age to complete this topic MENINGOCOCCAL VACCINE Aged Out No levon sobia eligible based on patient's age to complete this topic PNEUMOCOCCAL VACCINE Aged Out No long er eligible based on patient's age to complete this topic Advance Directives * Full Code (Latest Code Status on File) Date Activated Date Inactivated Comments 05/26/2020 1:07 PM 05/27/2020 4:26 PM Care Teams Senior Project Accountant Relationship Specialty Start Date End Date Kimberly Lozano MD [address] [place] [id number] PCP - General Family Medicine 03/14/20
--- OUTSIDE RECORDS SUMMARY | 2024-05-01 11:58 | XMS_ITS | Clinical Summary ---
Author Organization [facility] Address [address] [place] [address] Phone Care Team Providers Care Extractor Operator Helper Name Role Phone Kimberly Lozano MD Primary Care Provider + Active Problems Problem Noted Date Diagnosed Date Major depressive disorder, r ecurrent episode, moderate with anxious distress 10/21/2023 Family History Medical History Relation Name Comments Stroke Father Cancer Mother Alcohol Abuse Sister Relation Name Status Comments Brother x2 Alive Father Mother Alive Sister Social History Tobacco Use Types Packs/Day Years Used Date Smoking Tobacco: Never Smokeless Tobacco: Never Tobacco Cessation:Counseling Given: Not Answered Alcohol Use Standard Drinks/Week Comments Never 0 (1 standard drink = 0.6 oz pur e alcohol) PHQ-2 Answer Date Recorded Total Score - Questions 1-9 14 09/30 Sexually Active Control Partners Comments Not Currently Comments Unknown Sex and Gender Information Value Date Recorded Sex Assigned at Not on file Legal Sex Female 1:46 AM CDT Gender Identity Not on file Sexual Orientation Not on file Plan of Treatment Health Maintenance Due Date Last Done Comments Hepatitis C Virus (HCV) Screening 1969 TdaP Immunization 1969 Hepatitis B Immunization (1 of 3 - 19+ 3-dose series) 1988 Pap Smear 1990 Cervical Cancer Screening (CCS) 12/21/1999 HPV/Cotest 12/21/1999 Colonoscopy 2014 Colorectal Cancer Screening 2014 Cologuard 12/21/2019 Immunochemical Fecal Occult Blood 12/21/2019 Mammogram 12/21/2019 Pneumococcal Immunization (5 0+ years) (1 of 1 - PCV) 12/21/2019 Zoster Immunization (1 of 2) 12/21/2019 Influenza Immunization (#1) 12/01/202312/30, 01/23/2020, 05/07/2019 SARS-COV-2 Immunization ( - 2023- season) 2023 04/01/2021, 06/25/2020, 06/02/2020 Respiratory Syncytial Virus (RSV) Immunization (Adult) (1 - 1-dose 75+ series) 2044 Meningococcal Immunization (ACWY) Aged Out No longer eligible b ased on patient's age to complete this topic Pneumococcal Immunization Combined Aged Out No longer eligible b ased on patient's age to complete this topic Rotavirus Immunization Aged Out No lo nger eligible based on patient's age to complete this topic Insurance MEDICAID [employer] Care Teams Extractor Operator Helper Relationship Specialty Start Date End Date Kimberly Lozano MD [address] [id number] PCP - General Family Medicine 07/26/23
--- OUTSIDE RECORDS SUMMARY | 2024-05-01 11:58 | XMS_ITS | Clinical Summary ---
Author Organization [facility] Care Team Providers Care Parts Analyst Name Role Phone Kimberly Lozano MD Primary Care Prov ider Allergies Active Allergy Reactions Criticality Noted Date [...] alteration 11/05/2019 Migraine 11/05/2019 Depressive disorder 06/27/2018 Encounters Date Type Department Care Team Description 04/24/2024 7:26 AM TAR MAN - 04/24/2024 11:59 PM TAR MAN Hospital Encounter [facility] [address] [place] [address] for Advanced Medicine [address] [place] [address] Bradford Tapia MD Lumbar radiculopathy (Primary Dx) Discharge Disposition: Discharge to home or self care 02/14/2024 9:07 PM TAR MAN - 02/14/2024 11:59 PM TAR MAN Hospital Encounter [facility] [address] [place] [id number] Discharge Disposition: Discharge to home or self care 02/14/2024 2:50 PM TAR MAN - 02/14/2024 11:59 PM TAR MAN Hospital Encounter [facility] [address] [place] [address] for Advanced Medicine [address] [place] [address] Bradford Tapia MD Lumbar radiculopathy Discharge Disposition: Discharge to home or self care 02/11/2024 Telephone [facility] [address] [place] [address] for Advanced Medicine [address] [place] [address] Bradford Tapia MD [facility] Preprocedure 02/05/2024 12:40 PM TAR MAN - 02/05/2024 11:59 PM TAR MAN Hospital Encounter [facility] [address] [place] [address] for Advanced Medicine [address] [place] [address] Bradford Tapia MD Lumbar radiculopathy (Primary Dx) Discharge Disposition: Discharge to home or self care from Last 3 Months Surgical History Surgery Date Site/Laterality Comments CHOLECYSTECTOMY NEPHRECTOMY Right ANKLE SURGERY Right CARPAL TUNNEL RELEASE 11/29/2022 Left LT. CTR Medical History Medical History Date Comments Depression Social History Tobacco Use Types Packs/Day Years [...] on file Legal Sex Female 1:45 AM TAR MAN Gender Identity Not on file Sexual Orientation Not on file Obstetrics History Last Filed Vital Signs Vital Sign Reading Time Taken Comments Blood Pressure 105/68 04/24/2024 7:37 AM TAR MAN Pulse 83 04/24/2024 7:37 AM TAR MAN Temperature 36.5 ??C (97.7 ??F) 04/24/2024 7:37 AM CS T Respiratory Rate 14 04/24/2024 7:37 AM TAR MAN Oxygen Saturation 99% 04/24/2024 7:37 AM TAR MAN Inhaled Oxygen Concentration - - Weight 59 kg (130 lb) 02/14/2024 3:01 PM TAR MAN Height 165.1 cm (5' 5 ) 02/14/2024 3:01 PM TAR MAN Body Mass Index 21.63 02/14/2024 3:01 PM TAR MAN Plan of Treatment Health Maintenance Due Date Last Done Comments Breast Cancer Screening-Mammogram 1969 Cervical Cancer Screening 1969 Colon Cancer Screening-Colonoscopy 1969 Depression Screening 1969 Hepatitis C Screening 1969 DTaP/Tdap/Td Vaccine (1 - Tdap) 1980 Hepatitis B Screening 12/21/1987 Regular Well Visit/Exam 18-64 12/21/1987 Zoster Vaccine (1 of 2) 12/21/2019 Covid-19 Vaccine (4 - 2023-2 5 season) 2023 04/01/2021, 06/25/2020, 06/02/2020 Influenza Vaccine (#1) 2023 0, 05/07/2019 Pneumococcal vaccine <65 Aged Out No longer eligible based on patient's age to complete this topic Goals Goal Patient Goal Type Associated Problems Recent Progress Patient-Stated? Author CCM Chronic Pain Care Plan Chronic Care Management On track(2024 7:39 AM TAR MAN) Farrah Fischer, RN Note: Problem: Chronic Pain Goals: 1. Minimize further functional decline 2. Maximize quality of life 3. Control pain Strategies: - Activity/exercise program recommendation - Conservative stepwise pain medicine strategy with multi-disciplinary approach - Recommend healthy lifestyle strategies and compensatory methods as needed Procedures Procedure Name Priority Date/Time Associated Diagnosis Comments NEURO MR OUTSIDE REFERENCE Routine 02/14/2024 9:07 PM TAR MAN PAIN MGMT IMAGING LUMBAR/SACRAL SELECTIVE NERVE ROOT INJ (TFE) LEFT Schedule Routine, Read Routine (OP Routine) 02/14/2024 4:27 PM TAR MAN Lumbar radiculopathy from Last 3 Months Results * Neuro MR Outside Reference (02/14/2024 9:07 PM TAR MAN) Impressions [facility] - 02/14/2024 9:07 PM TAR MAN These images are for Reference purposes only and have not been reviewed by [facility]. ??There will be no report generated by a [facility] Radiologist. Narrative [facility] - 02/14/2024 9:07 PM TAR MAN EXAMINATION: ??Images For Reference Purposes Only us Bradford SOTELO MRI PROCEDURES Fi nal Result [facility] * Imaging Lumbar/Sacral Selective Nerve Root INJ (TFE) Left (84330) (02/14/2024 4:27 PM TAR MAN) Narrative [facility] - 02/14/2024 4:27 PM TAR MAN The images from this study are not interpreted by Radiology. ??Please refer to the physician's procedure / OR operative note. Bradford Tieppo Francio MD IMG PAIN MGMT PROCEDU RES Final Result [facility] from Last 3 Months Insurance [facility] [id number] Care Teams Parts Analyst Relationship Specialty Start Date End Date Kimberly Lozano MD [address] [place] [address] PCP - General Family Medicine 11/08/22
--- OUTSIDE RECORDS SUMMARY | 2024-05-01 11:58 | XMS_ITS | Data Portability ---
Author Organization [facility] [place] Address [address] [place] [address] Care Team Providers Care Lighting Engineer Name Role Phone RANDY JUAN Primary Care Provider Assessment Encounter Date Assessment Date Assessment LastModified by Organization Details LastModified Time 01/05/2020 01/05/2020 The patient and I discussed the various causes of abnormal uterine bleeding, including polyps, fibroids, hyperplasia, atypia, anovulation, etc. We reviewed the typical evaluation with labs, pelvic US and possible endometrial biopsy. Briefly discussed the options available for treatment (depending on the results of evaluation) such as hormonal treatment (OCPs, progestins), Mirena, endometrial ablation, and surgery. We spent more than 30 minutes face to face. [email or web address] Not available 01/05/2020 15:58:56 09/14/2020 09/14/2020 To do previously ordered labs today Discussed US results- likely polyps, but cannot exclude malignancy without endometrial sampling. Given her anxiety and PTSD, offered office EMB vs HSC/D and C/polypectomy in OR. She actually prefers EMB in office because she wants results ramses. will schedule. [email or web address] Not available 09/16/2020 09:33:28 11/06/2022 11/06/2022 Annual gynecological exam performed. Patient will come back in a year unless there are new symptoms. [email or web address] Not available 11/06/2022 16:29:17 Plan of Treatment Reminders Order Date Submit Date Provider Last Modified By Organization Details Last Modified Time Details Appointments None recorded. Lab TSH, serum or plasma 2019 020 [email or web address] [facility]), [address] , [address], [place], [address], 0 12:03:38 lh + FSH, serum 2019 020 [email or web address] [facility] ([facility]), [address] , [address], [place], [address], 0 12:03:38 estradiol, serum 2019 020 [email or web address] [facility]), [address] , [address], [place], [address], 0 12:03:38 Referral None recorded. Procedures None recorded. Surgeries None recorded. Imaging US, duplex, abdomen + pelvis, complete 2019 OTONIEL [place], [address], [address], [place], [address], 1 05:00:36 US, pelvis [address], [address], [address], [place], [address], 1 18:02:47 US, transvagina l [address], [address], [address], [place], [address], 1 18:02:47 Medication Orders Miralax 17 gram oral powder packet [id number], [address] , [place], [place], [id number], 1 16:49:40 Diflucan 150 mg tablet 2019 [id number], [address], [place], [place], [id number], 1 16:49:15 Patient TargetsNo targets recorded. Patient Instructions Encounter Date Encounter Id Patient Instructions Last Modified By Organization Details Last Modified Time 01/05/2020 [id number] [email or web address] Not available 15:48:31 Reason for Referral None Reported. Results Created Date Observation Date Name Description Value Unit Range Abnormal Flag Note LastModifiedBy Organization Detail LastModifiedTime 01/05/20 20 01/07/2020 pap, LB Pap test thin prep Negati ve for Intrae pithel ial Lesion or Malign parrish normal ACCES ANNETTE #: [id number] Sourc e: Cervi brandon/E ndoce rvica l LMP: 08/18 Date Taken : 01/04 Speci men Type: ThinP rep Vial Date Repor stacey: 2019 Clini brandon Data: Cytot ech: Rondaitl in Tunde Ghosh CT( CP) Date Repor stacey: 2019 Speci men Adequ acy: Satis facto ry for evalu ation No endoc ervic al/tr ansfo rmati on zone compo nent prese nt Gener al Categ oriza tion: NEGAT MARBELLA FOR INTRA EPITH ELIAL LESIO N OR MALIG JONG The follo wing tests have been order ed as reque sted and a separ ate repor t will be issue d: Vagin itis Panel This speci men has been olvin zed by the ThinP rep Imagi ng Syste m, an inter activ e compu ter syste m which alejandra ts the lab in the scree mary of ThinP rep Pap Test slide s. Follo wing imagi ng, the slide was revie wed by a Cytot echno logis t and/o r Patho logis t. D N A A S S A Y S R E P O R T TEST NAME RESUL TS ----- ---- ----- -- HPV High Risk Screluanne n (TMA) ThinP rep Vial The human papil lomav irus (HPV) High Risk Octavio santos is an FDA-a pprov ed in-vi tro ampli fied nucle ic acid test for the quali tativ e detec tion of E6/E7 viral mRNA. Resul ts shoul d be corre lated with patie nt prese ntati on, histo ry, cervi brandon cytol ogy and other clini brandon and labor atory findi ngs. See https ://[employer]/s ites/ defau lt/fi 018-0 3/AW- 97426 _002_ 01.pd f for furth er infor matio n. Test perfo rmed by [facility] [employer], d/b/a [facility], [address], [place] [address] , Lala Celaya ra, DO, Labor atory Dire tor. HPV High Risk *HPV NOT DETEC STACEY (TYPE S 16, 18, 31, 33, 35, 39, 45, 51, 52, 56, 58, 59, 66, 68) *HPV: The human papil lomav irus (HPV) High Risk Octavio santos is an FDA-a pprov ed in-vi tro ampli fied nucle ic acid test for the quali tativ e detec tion of E6/E7 viral mRNA. Resul ts viviana d be corre lated with patie nt prese ntati on, histo ry, cervi brandon cytol ogy and other clini brandon and labor atory findi ngs. See https ://[employer]/s ites/ defau lt/fi -0 /AW- 74354 _002_ 01.pd f for [facility] er infor matio n. Test perfo rmed by [facility] [facility] [employer], d/b/a [facility], [address], [place] [address] , Lala Celaya ra, DO, Labor atory Dire tor. End of Repor t Techn ical servi royer provi ded by [facility] [facility] logis [employer], d/b/a [facility], [address] [place] [address] Nile Terry MD, Labor atory Direc tor. Case revie wed and diagn osis rende red at [facility], d/b/a Path [facility], [address] [place] [address] Nile Terry MD, [facility]. CONFI DENTI AL Not Available [facility]) [address], [place], [address], 01/07/2020 16:29:15 01/05/20 20 01/06/2020 bacte rial vagin osis + vagin itis panel , vagin al trichomonas vaginalis, aptima (panther) NOT DETECT ED normal Trich omona s vagin viktor: DNA testi ng perfo rmed by Trans cript ion Media stacey Ampli ficat ion (TMA) These resul ts shoul d be inter prete d in light of all clini brandon and labor atory findi ngs. This assay is highl y accur ate, but rare false posit marbella and negat marbella resul ts may occur . Posit marbella resul ts in low preva lence popul ation s may requi re re-ev aluat ion. A negat marbella resul t does not precl ude a possi ble infec tion due to a speci men inade quacy or sampl ing error . Test perfo rmed by [facility], d/b/a Path[facility], [address], [place] [address] , Lala Celaya ra, DO, [facility]. Gardn erell a vagin viktor, Mariela da speci es: Genom ic DNA is isola stacey from patie nt speci mens by stand juan labor atory techn iques and olvin zed using custo m OpenA rray plate s, perfo rmed on the Quant Studi o 12K Flex Real Time PCR syste m. A posit marbella resul t is provi ded for patho genic bacte boaz, virus and/o r funga l speci es based on detec tion of ampli ficat ion produ cts. Candace l vagin al jaylyn resul ts of Candace l or [place] stacey are deter mined by calcu latin g the ratio of the organ ism to the total bacte boaz prese nt in the speci men, and jessenia ring that ratio to a PathG roup patie nt popul ation . Overa ll resul ts of Candace l, Borde rline and Abnor mal are deter mined using a proba bilit y model which was devel oped by an exten sive olvin sis and integ ratio n of clini brandon thres holds for marke r organ isms on a large set of sympt omati c & asymp tomat ic speci mens. Patie nt popul ation s with diffe rent demog raphi cs from the PathG roup model popul ation may have diffe rent indic ator organ isms with diffe rent relat marbella ratio s, which would influ ence the final resul ts. Resul ts shoul d be inter prete d in the julienne xt of all clini brandon and labor atory findi ngs. The test was devel oped and its perfo rmanc e fer cteri stics deter mined by [email or web address], [employer] d/b/a PathG rouNMRKT. It has not been clear ed or appro leola by the U.S. Food and Drug Admin istra tion. The FDA has deter mined that such clear ance or appro randolph is not neces arthur. Perti nent refer ence inter vals are avail able from the labor atory on reque st. Test( s) perfo rmed by [employer] [facility] [employer], [employer], d/b/a [facility], [address], [place] [address] , Lala Celaya ra, DO, Labor atory Direc tor. Not Available [facility] ([facility]) [address], [place], [address], 01/07/2020 16:29:15 01/05/20 20 01/07/2020 bacte rial vagin osis + vagin itis panel , vagin al odilon sp. Not Detect ed normal Trich omona s vagin viktor: DNA testi ng perfo rmed by Trans cript ion Media stacey Ampli ficat ion (TMA) These resul ts shoul d be inter prete d in light of all clini brandon and labor atory findi ngs. This assay is highl y accur ate, but rare false posit marbella and negat marbella resul ts may occur . Posit marbella resul ts in low preva lence popul ation s may requi re re-ev aluat ion. A negat marbella resul t does not precl ude a possi ble infec tion due to a speci men inade quacy or sampl ing error . Test perfo rmed by [facility], d/b/a PathJeanette fulton, [address], [place] [address] , Lala Celaya ra, DO, Labor atory Direc tor. Adelaida núñez a vagin viktor, Mariela da speci es: Genom ic DNA is isola stacey from patie nt speci mens by stand juan labor atory techn iques and olvin zed using custo m OpenA rray plate s, perfo rmed on the Quant Studi o 12K Flex Real Time PCR syste m. A posit marbella resul t is provi ded for patho genic bacte boaz, virus and/o r funga l speci es based on detec tion of ampli ficat ion produ cts. Candace l vagin al jaylyn resul ts of Candace l or [place] stacey are deter mined by calcu latin g the ratio of the organ ism to the total bacte boaz prese nt in the speci men, and jessenia ring that ratio to a PathG roup patie nt popul ation . Overa ll resul ts of Candace l, Borde rline and Abnor mal are deter mined using a proba bilit y model which was devel oped by an exten sive olvin sis and integ ratio n of clini brandon thres holds for marke r organ isms on a large set of sympt omati c & asymp tomat ic speci mens. Patie nt popul ation s with diffe rent demog raphi cs from the [employer] model popul ation may have diffe rent indic ator organ isms with diffe rent relat marbella ratio s, which would influ ence the final resul ts. Resul ts shoul d be inter prete d in the julienne xt of all clini brandon and labor atory findi ngs. The test was devel oped and its perfo rmanc e fer cteri stics deter mined by [employer], [employer] d/b/a [facility]. It has not been clear ed or appro leola by the U.S. Food and Drug Admin istra tion. The FDA has deter mined that such clear ance or appro randolph is not neces arthur. Perti nent refer ence inter vals are avail able from the [facility] atory on reque st. Test( s) perfo rmed by [employer], [employer], d/b/a [employer], [address], [place] [address] , Lala Celaya ra, DO, Labor atory Dire tor. Not Available [facility] ([facility]) [address] [facility] [address], [place], [address], 01/07/2020 16:29:15 01/05/20 20 01/07/2020 bacte rial vagin osis + vagin itis panel , vagin al gardnerella vaginalis Not Detect ed normal Trich omona s vagin viktor: DNA testi ng perfo rmed by Trans cript ion Media stacey Ampli ficat ion (TMA) These resul ts shoul d be inter prete d in light of all clini brandon and labor atory findi ngs. This assay is highl y accur ate, but rare false posit marbella and negat marbella resul ts may occur . Posit marbella resul ts in low preva lence popul ation s may requi re re-ev aluat ion. A negat marbella resul t does not precl ude a possi ble infec tion due to a speci men inade quacy or sampl ing error . Test perfo rmed by [employer] [facility], [employer], d/b/a [facility]G [facility]oup, [address], [place] [address] , Lala Celaya ra, DO, Labor atory Direc tor. Gardn erell a vagin viktor, Marieal da speci es: Genom ic DNA is isola stacey from patie nt speci mens by stand juan labor atory techn iques and olvin zed using custo m OpenA rray plate s, perfo rmed on the Quant Studi o 12K Flex Real Time PCR syste m. A posit marbella resul t is provi ded for patho genic bacte boaz, virus and/o r funga l speci es based on detec tion of ampli ficat ion produ cts. Candace l vagin al jaylyn resul ts of Candace l or [place] stacey are deter mined by calcu latin g the ratio of the organ ism to the total bacte boaz prese nt in the speci men, and jessenia ring that ratio to a PathG roup patie nt popul ation . Overa ll resul ts of Candace l, Borde rline and Abnor mal are deter mined using a proba bilit y model which was devel oped by an exten sive olvin sis and integ ratio n of clini brandon thres holds for marke r organ isms on a large set of sympt omati c & asymp tomat ic speci mens. Patie nt popul ation s with diffe rent demog raphi cs from the PathG roup model popul ation may have diffe rent indic ator organ isms with diffe rent relat marbella ratio s, which would influ ence the final resul ts. Resul ts shoul d be inter prete d in the julienne xt of all clini brandon and labor atory findi ngs. The test was devel oped and its perfo rmanc e fer cteri stics deter mined by [employer] [facility] d/b/a PathG roup. It has not been clear ed or appro leola by the U.S. Food and Drug Admin istra tion. The FDA has deter mined that such clear ance or appro randolph is not neces arthur. Perti nent refer ence inter vals are avail able from the labor atory on reque st. Test( s) perfo rmed by [facility] [employer], d/b/a Viri [facility]aim, [address] [facility] [address], [place] [address] , Lala Celaya ra, DO, Labor atory Direc tor. Not Available [facility]) [address] [place] [address] [address], [place], [address], 01/07/2020 16:29:15 01/05/20 20 01/06/2020 HPV DNA, high- risk HPV high risk NOT DETECT ED normal The human papil lomav irus (HPV) High Risk Octavio santos is an FDA-a pprov ed in-vi tro ampli fied nucle ic acid test for the quali tativ e detec tion of E6/E7 viral mRNA. Resul ts viviana simpson be corre lated with patie nt prese ntati on, histo ry, cervi brandon cytol ogy and other clini brandon and labor atory findi ngs. See https ://[employer]/s gee/ tanisha lt/fi les/2 018-0 3/AW- 73068 _002_ 01.pd f for gabi er infor matbhargavi n. Test perfo rmed by [facility] [employer], d/b/a Viri fulton, [address] [facility] [address], [place] [address] , Lala Celaya ra, DO, Labor atory Direc tor. Not Available [facility]) [facility] [address], [place], [address], 01/07/2020 16:29:16 09/13/19 21 09/12/2020 TSH, serum or plasm a TSH 0.66 uIU/m L 0.30-[address] [facility] (Lab) [address] [place], [address], 09/13/2020 06:37:39 09/13/19 21 09/12/2020 hormo ne panel , serum or plasm a estradiol 124.0 pg/mL This assay was perfo rmed using [employer] ratio n reage nts and test kits. Value s obtai richie with other assay metho ds or kits canno t be used inter rodney eably . Femal e Estra diol Range s: Folli cular phase 12.4- 233 pg/mL Ovula tion phase 41.0- 398 pg/mL Lutea l phase 22.3- 341 pg/mL Postm enopa usal< 5-138 pg/mL Healt hy Pregn ant Women 1st Trime ster1 54-32 43 pg/mL 2nd Trime ster1 561-2 1280 pg/mL 3rd Trime ster8 525-> 84316 pg/mL Not Available [facility] (Lab) [address] [facility], [place], [address], 09/13/2020 06:37:40 09/13/19 21 09/12/2020 hormo ne panel , serum or plasm a FSH 14.1 mIU/m L This assay was perfo rmed using [employer] ratio n reage nts and test kits. Value s obtai richie with other assay metho ds or kits canno t be used inter rodney eably . Femal es Folli cular : 3.5-1 2.5 mIU/m L Ovula tion: 4.7-2 1.5 mIU/m L Lutea l: 1.7-7 .7 mIU/m L Postm enopa use: 25.8- 134.8 mIU/m L Not Available [facility] (Lab) [address] [place], [address], 09/13/2020 06:37:40 09/13/19 21 09/12/2020 hormo ne panel , serum or plasm a luteinizing hormone 12.7 mIU/m L This assay was perfo rmed using [employer] ratio n reage nts and test kits. Value s obtai richie with other assay metho ds or kits canno t be used inter rodney eably . Femal es Mid-F ollic ular: 2.4-1 2.6 mIU/m L Mid-C ycle: 14.0- 95.6 mIU/m L Mid-L uteal : 1.0-1 1.4 mIU/m L Postm enopa use: 7.7-5 8.5 mIU/m L Not Available [facility] (Lab) [address], [place], [address], 09/13/2020 06:37:40 09/29/19 21 09/28/2020 SURGI BRANDON PATHO LOGY surgical pathology [facility] SEE RESULT S BELOW CASE REPOR T: Surgi brandon Patho logy Repor t Case: [id number] Autho vitaliy francis Provi jero: Raina Tipton MD Colle cted: 09/28 1152 Order ing Locat ion: [place] Patho log[facility] Recei leola: 09/29 0036 Patho logis t: Mamadou Mcnair MD Speci men: Endom etriu m, EMB FINAL DIAGN OSIS: Endom etriu m, biops y: -Secr etory phase endom etriu m. -No hyper plasi a or malig jong ident ified . Sandra simpson by Mamadou Mcnair MD on 021 at 1:32 PM ----- ----- ----- ----- ----- ----- ----- ----- ----- ----- ----- ----- ----- ----- ----- ----- ----- ---- CLINI BRANDON INFOR MATIO N: not provi ded MICRO SCOPI C DESCR IPTIO N: A micro scopi c exami natio n was perfo rmed. GROSS DESCR IPTIO N: A. Endom etriu m. The speci men is label ed with the patie nt's name, jasonog raphi cs and EMB . Recei leola in forma nik is a 2.0 x 2.0 x 0.3 [address] gate of pink- corona tissu e and mucoi d mater ial. The entir e speci men is submi tted in one casse tte. Gross ed by Papo Das Not Available [facility] (Lab) [address], [place], [address], 09/29/2020 14:34:06 09/13/19 21 09/12/2020 US, pelvi s No observ ation record ed. [email or web address] [place] [address], [place], [address], 09/12/2020 17:43:46 09/13/19 21 09/12/2020 US, trans vagin al No observ ation record ed. [email or web address] [place] [address], [place], [address], 09/12/2020 17:44:01 09/13/19 21 09/12/2020 US, pelvi s No observ ation record ed. timur [address] [facility], [place], [address], 09/13/2020 14:12:10 Result Notes None recorded. Procedures Surgical History Date Name Laterality Status Provider Name and Address Organization Details Recorded Time 022 Date of Last Mammogram completed Katherine Briscoe [facility] 11/06/2022 16:29:39 021 Endometrial Biopsy completed Raina Garcia MD [address], [place], [address], [facility] 09/28/2020 10:44:55 020 Date of Last Pap Smear completed Katherine Briscoe [facility] 11/06/2022 16:30:18 Cholecystectomy completed Tejal Velasquez [facility] 01/05/2020 15:07:50 procedure on ankle completed Tejal Velasquez [facility] 01/05/2020 15:07:57 Imaging Results Imaging Date Name Status LastModified by Organization Details LastModified Time 09/12/2020 US, pelvis completed [email or web address] [place] [address], [place], [address], 09/12/2020 17:43:46 09/12/2020 US, transvaginal [facility] [email or web address] [address], [place], [address], 09/12/2020 17:44:01 09/12/2020 US, pelvis completed [email or web address] [address], [place], [address], 09/13/2020 14:12:10 Procedure Notes None recorded. Medical Equipment None Reported. Allergies Allergen ID Allergen Name Allergen Category Reaction Reaction Severity Criticality Documentation Date Start Date Code Code System Note Provider Name and Address Organization Details Recorded Time 2282 POLLEN EXTRACTS environme nt,medica tion Not available Not available Not available 01/05/2020 43040 6 RxNorm Tejal Velasquez vin [facility] 0 15:01:34 2283 ragweed pollen environme nt Not available Not available Not available 01/05/2020 31532 UNK Tejal Ron banuelos [facility] 0 15:01:40 2284 mold extract environme nt Not available Not available Not available 01/05/2020 15370 8 RxNorm Tejal banuelos [facility] 0 15:01:45 Medications Name Sig Start Date Stop Date Status Note LastModified by Organization Details LastModified Time fluoxetine 40 mg capsule TAKE 1 CAPSULE BY MOUTH EVERY MORNING active Not Available Not Available No t Available cyclobenzap rine 10 mg tablet TAKE 1 TABLET BY MOUTH TWICE DAILY 09/14 completed Not Available Not Available Not Available polyethylen e glycol 3350 17 gram oral powder packet Take 1 packet every day by oral route. 09/14 completed Not Available Not Available Not Available ibuprofen 800 mg tablet 01/04 completed Not Available Not Available Not Available fluconazole 150 mg tablet TK 1 T PO QD FOR 1 DAY 09/14 completed Not Available Not Available Not Available hydrocodone 5 mg-acetamin ophen 325 mg tablet TAKE 1 TABLET BY MOUTH EVERY 6 HOURS NEEDED FOR PAIN 09/14 completed Not Available Not Available Not Available prazosin 1 mg capsule TAKE 1 CAPSULE BY MOUTH EVERY DAY AT BEDTIME FOR 3 TO 4 DAYS THEN INCREASE TO 2 CAPSULES DIRECTED 09/14 completed Not Available Not Available Not Available sumatriptan 25 mg tablet TAKE 1 TABLET BY MOUTH AT ONSET OF HEADACHE. MAY REPEAT IN 2 HOURS IF NEEDED. MAX 2TABS/24H RS active Not Available Not Available No t Available valacyclovi r 500 mg tablet TAKE 2 TABLETS BY MOUTH 3 TIMES A DAY FOR 7 DAYS active Not Available Not Available No t Available triamcinolo ne acetonide 0.1 % topical cream APPLY TWICE A DAY ON AFFECTED AREA 11/06 completed Not Available Not Available Not Available famotidine 20 mg tablet TAKE 1 TABLET BY MOUTH TWICE A DAY active Not Available Not Available No t Available cephalexin 500 mg capsule 01/04 completed Not Available Not Available Not Available pantoprazol e 40 mg tablet,jimmy yed release TAKE 1 TABLET BY MOUTH EVERY DAY AT BEDTIME 11/06 completed Not Available Not Available Not Available montelukast 10 mg tablet TAKE 1 TABLET BY MOUTH EVERY DAY IN THE MORNING 11/06 completed Not Available Not Available Not Available fluoxetine 20 mg capsule 01/04 completed Not Available Not Available Not Available fluticasone propionate 50 mcg/actuati on nasal spray,suspe nsion SHAKE LIQUID & USE 1 SPRAY IN EACH NOSTRIL EVERY DAY 11/06 completed Not Available Not Available Not Available loratadine 10 mg tablet 01/04 completed Not Available Not Available Not Available prazosin 2 mg capsule TAKE 1 CAPSULE BY MOUTH EVERY DAY AT BEDTIME 09/14 completed Not Available Not Available Not Available naproxen 500 mg tablet 01/04 completed Not Available Not Available Not Available aripiprazol e 10 mg tablet TAKE 1 TABLET BY MOUTH EVERY DAY AT NOON 09/14 completed Not Available Not Available Not Available aripiprazol e 5 mg tablet TAKE 1 TABLET BY MOUTH EVERY DAY AT NOON 09/14 completed Not Available Not Available Not Available bupropion HCl XL 150 mg 24 hr tablet, extended release TAKE 1 TABLET BY MOUTH EVERY DAY FOR 30 DAYS 11/06 completed Not Available Not Available Not Available nitrofurant oin monohydrate /macrocryst als 100 mg capsule TAKE 1 CAPSULE BY MOUTH TWICE A DAY 11/06 completed Not Available Not Available Not Available fluticasone propionate 09/14 completed Not Available Not Available Not Available Nadia Allergy 11/06 completed Not Available Not Available Not Available Vitals Date Recorded Body height Body mass index (BMI) Body weight Systolic blood pressure Diastolic blood pressure Provider Name and Address Organization Details Last Updated DateTime 09/14/2020 167.64 cm 20.8 kg/m2 71717.42 g 118 mm[Hg] 72 mm[Hg] [facility] 1 16:48:57 Date Recorded Body height Body mass index (BMI) Body weight Systolic blood pressure Diastolic blood pressure Provider Name and Address Organization Details Last Updated DateTime 09/28/2020 167.64 cm 20.7 kg/m2 99944.82 g 107 mm[Hg] 67 mm[Hg] [facility] 1 10:24:00 Date Recorded Body height Body mass index (BMI) Body weight Systolic blood pressure Diastolic blood pressure Provider Name and Address Organization Details Last Updated DateTime 11/06/2022 167.64 cm 21.8 kg/m2 38200.97 g 109 mm[Hg] 69 mm[Hg] Katherine Briscoe [facility] 3 16:29:36 Date Recorded Body height Body mass index (BMI) Body weight Systolic blood pressure Diastolic blood pressure Provider Name and Address Organization Details Last Updated DateTime 01/05/2020 167.64 cm 20.3 kg/m2 43705.64 g 119 mm[Hg] 70 mm[Hg] Tejal Velasquez [facility] 0 15:13:57 Social History Question Answer Notes LastModified by Organizat ion Details LastModified Time Tobacco Smoking Status Never Smoker Katherine Briscoe [facility] 11/06/2022 16:29:43 What Is Your Level Of Alcohol Consumption? None Information not available 11/06/2022 Are You Blind Or Do You Have Difficulty Seeing? No Information n ot available 11/06/2022 What Is Your Level Of Caffeine Consumption? Heavy Information not available 11/06/2022 In The 14 Days Before Symptom Onset, Have You Had Close Contact With A Laboratory-confirm ed COVID-19 While That Case Was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
[2024-05-01 12:18] VITALS: BP 128/67; PULSE 86; RESP 16; TEMP 36.6; O2SAT 99
--- NOTE | 2024-05-01 13:41 | ED.HEATRA ---
HPI - Head Injury General Chief complaint: Head Injury Stated complaint: hit L. occipital 5 days ago Time Seen by Provider: 05/01/24 13:41 Focused HPI: This is a 53 year old female that presents to the ER for a head injury. Sustained 4 days ago. Reports she hit the back of her head on a cabinet sitting up. She did not lose consciousness. Has had headaches since. Denies vision changes, vomiting, numbness. GENERAL: Well-appearing, well-nourished, and in no acute distress. HEAD: Normocephalic, atraumatic. CHEST: Clear to auscultation. ?No respiratory distress. HEART: Regular rate and rhythm.? NEURO: ?Alert and oriented x3. Patient screened in triage and initial orders placed.? ?Additional care and disposition to be based upon?diagnostic testing and treatment. Related Data Home Medications ?Medication ?Instructions ?Recorded ?Confirmed ?Last Taken ?Type acetaminophen 650 mg/20.3 mL oral 650 mg PO Q6H PRN 09/09/23 Unknown History solution famotidine 20 mg tablet 20 mg PO DAILY 09/09/23 Unknown History fexofenadine 180 mg tablet 180 mg PO DAILY 09/09/23 Unknown History (Nadia Allergy) sumatriptan succinate 25 mg tablet See Rx Instructions PO .COMPLEX 09/09/23 Unknown History Allergies Allergy/AdvReac Type Severity Reaction Status Date / Time bupropion (From Wellbutrin) Allergy Unknown Verified 05/01/24 11:56 [facility] Past Medical History Medical History Anorexia Depression Multiple personality disorder Surgical History Surgical History History of ankle surgery History of cholecystectomy History of nephrectomy Family History Family History (Updated 12/16/23 @ 08:57 by JEAN-PIERRE Salgado) Mother Cancer Spinal stenosis Other Diabetes mellitus Hypertension Social History Social History (Updated 12/16/23 @ 09:06 by Reyna Shelton [facility]) Smoking status: Never smoker Second hand tobacco smoke exposure: Yes Alcohol intake: never Substance use: never Substance use type: does not use Do You Feel Safe in your Home?: Yes Lack of Transportation: No Lack of Food: Never True Current Housing: I Have Housing Concerned About Future Housing: No Difficulty Paying Gas/Electric Bills: YES Difficulty Paying for Meds: No Currently Unemployed: Decline to Answer Education: High School Diploma/GED Difficulty w/ Childcare or Family Care: No Living arrangements: alone Occupation/Education: unemployed 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 Gender identity (if verbalized by the patient): Female Course Vital Signs Vital signs: Vital Signs Temperature 97.9 F 05/01/24 12:18 Pulse Rate 86 05/01/24 12:18 Respiratory Rate 16 05/01/24 12:18 Blood Pressure 128/67 05/01/24 12:18 Pulse Oximetry 99 05/01/24 12:18 Oxygen Delivery Room Air 05/01/24 12:18 Temperature 97.9 F 05/01/24 12:18 Pulse Rate 86 05/01/24 12:18 Respiratory Rate 16 05/01/24 12:18 Blood Pressure 128/67 05/01/24 12:18 Pulse Oximetry 99 05/01/24 12:18 Oxygen Delivery Room Air 05/01/24 12:18 MDM - Head Injury MDM Narrative Medical decision making narrative: Patient left after medical screening exam and initial workup and before any further evaluation or management Discharge Plan Discharge Clinical Impression: Closed head injury Qualifiers: Encounter type: initial encounter Qualified Code(s): S09.90XA - Unspecified injury of head, initial encounter Patient Disposition: Elopement After Seen by Prov Condition: Stable Patient Language: Bhutanese Prescriptions: No Action fexofenadine [Nadia Allergy] 180 mg tablet 180 mg PO DAILY famotidine 20 mg tablet 20 mg PO DAILY sumatriptan succinate 25 mg tablet See Rx Instructions PO .COMPLEX Rx Instructions: take 1 tab at onset of headache; if no relief may repeat 1 tab after at least 2 hrs; max = 4 tabs/24 hr PO acetaminophen 650 mg/20.3 mL solution 650 mg PO Q6H PRN Follow-up/Referrals: Marta,Kimberly Whitfield MD [Primary Care Provider] -
--- OUTSIDE RECORDS SUMMARY | 2024-05-01 16:08 | XMS_ITS | Patient Health Summary ---
Author Organization [facility] Address [address] [place] [address] Care Team Providers Care Copy Chaser Name Role Phone Kimberly Lozano MD Primary Care Provider + Note from [facility],non-owned Affiliates and Associated Physician Practices is amultiple site organization consisting of ambulatory clinics and hospital sitesin [place], [place], [place] and [place]. This disclosure is being madepursuant to the Care Everywhere program and may not contain all information available regarding this patient. Last updated 17.[facility] Allergies * Adhesive Sensitivity(Rash) -Medium Criticality * [...] Comments Blood Pressure 133/82 06/10/2020 7:56 AM CIVIL ENGINEERING DRAFTSPERSON Pulse 75 06/10/2020 7:56 AM CIVIL ENGINEERING DRAFTSPERSON Temperature 36.1 ??C (97 ??F) 06/10/2020 7:56 AM CIVIL ENGINEERING DRAFTSPERSON Respiratory Rate 18 05/27/2020 11:15 AM CIVIL ENGINEERING DRAFTSPERSON Oxygen Saturation 100% 06/10/2020 7:56 AM CIVIL ENGINEERING DRAFTSPERSON Inhaled Oxygen Concentration - - Weight 55.8 kg (123 lb) 06/10/2020 7:56 AM CIVIL ENGINEERING DRAFTSPERSON Height 165.1 cm (5' 5 ) 06/10/2020 7:56 AM CIVIL ENGINEERING DRAFTSPERSON Body Mass Index 20.47 06/10/2020 7:56 AM CIVIL ENGINEERING DRAFTSPERSON Procedures * PREPARE RBC LEUKOREDUCED UNIT(Performed 05/28/2020) * CBC W/O DIFFERENTIAL(Performed 05/27/2020) * BASIC METABOLIC PANEL (CALCIUM TOTAL)(Performed 05/27/2020) * PATHOLOGY TISSUE(Performed 05/26/2020) Performed for Non-functioning kidney * PERIPHERAL IV NOTE(Performed 05/26/2020) * ENDOTRACHEAL TUBE NOTE(Performed 05/26/2020) * IA LAP, RADICAL NEPHRECTOMY(Performed 05/26/2020) Performed for Non-functioning [...] RBC UNIT(S), 2 Units (05/28/2020 2:17 AM CIVIL ENGINEERING DRAFTSPERSON) Unit Description AS1 LR PRBC [facility] Unit ABO O [facility] Unit Rh POS [facility] Product Number R02 [facility] Unit Donor # [id number] [facility] Unit Status released [facility] Product Code [id number] [facility] Blood Type Barcode 5100 [facility] Expiration Date S BLOOD BANK LAB Unit Description AS1 LR PRBC [facility] Unit ABO O [facility] Unit Rh POS [facility] Product Number R02 [facility] Unit Donor # [id number] [facility] Unit Status released [facility] BLOO D [facility]ANK [facility] Product Code [id number] [facility] Blood Type Barcode 5100 [facility] Expiration Date S BLOOD BANK LAB Blood Bank BLOOD SPECIMEN / Unknown 05/26/2020 8:23 AM CIVIL ENGINEERING DRAFTSPERSON Carlitanik EL LAB - BLOOD BANK ORDERABLES [facility] [address] [place] [address], [place] [phone] * (ABNORMAL) CBC W/O DIFFERENTIAL (05/27/2020 5:31 AM [facility]) WBC 10.8(H) 3.5 - 10.5 10? 3 /uL 05/27/2020 6:17 AM [facility] RBC 3.83(L) 3.90 - 5.00 10? 6 /uL 05/27/2020 6:17 AM [facility] Hemoglobin 11.5(L) 12.0 - 15.5 g/dL 05/27/2020 6:17 AM [facility] Hematocrit 35.5 35.0 - 45.0 % 05/27/2020 6:17 AM [facility] MCV 92.7 81.0 - 97.0 fL 05/27/2020 6:17 AM [facility] MCH 30.0 28.0 - 34.0 pg 05/27/2020 6:17 AM [facility] MCHC 32.4 32.0 - 36.0 g/dL 05/27/2020 6:17 AM [facility] Platelet Count 196 150 - 400 10? 3 /uL 05/27/2020 6:17 AM [facility] RDW-SD 45.0 36.0 - 50.0 fL 05/27/2020 6:17 AM [facility] RDW-CV 13.3 11.2 - 14.8 % 05/27/2020 6:17 AM [facility] MPV 10.5 9.3 - 12.8 fL 05/27/2020 6:17 AM [facility] nRBC Absolute 0.00 0 10? 3 /uL 05/27/2020 6:17 AM [facility] nRBC Auto 0.0 0 /100 WBC 05/27/2020 6:17 AM [facility] Blood BLOOD SPECIMEN / Unknown Lab Venipuncture / Unknown 05/27/2020 5:31 AM CIVIL ENGINEERING DRAFTSPERSON 05/27/2020 6:09 AM CIVIL ENGINEERING DRAFTSPERSON Timmy Acevedo MD LAB - HEMATOLOGY O RDERABLES Performing Organization Address City/[facility]/ZIP Co de Phone Number [address] [address], [place] [phone] * (ABNORMAL) BASIC METABOLIC PANEL (CALCIUM TOTAL) (05/27/2020 5:31 AM CIVIL ENGINEERING DRAFTSPERSON) Only the most recent of2 resultswithin the time period is included. BUN 11 7 - 26 mg/dL 05/27/2020 6:35 AM [facility] Creatinine 0.7 0.6 - 1.2 mg/dL 05/27/2020 6:35 AM [facility] Sodium 134(L) 136 - 145 mmol/L 05/27/2020 6:35 AM [facility] Potassium 3.9 3.5 - 4.5 mmol/L 05/27/2020 6:35 AM [facility] Chloride 103 98 - 107 mmol/L 05/27/2020 6:35 AM [facility] CO2 25 22 - 29 mmol/L 05/27/2020 6:35 AM [facility] Glucose 112 70 - 115 mg/dL 05/27/2020 6:35 AM [facility] Calcium 7.7(L) 8.4 - 10.2 mg/dL 05/27/2020 6:35 AM [facility] Anion Gap 10 8 - 18 05/27/2020 6:35 AM [facility] BUN/Creatinine Ratio 16 7 - 23 05/27/2020 6:35 AM [facility] Osmolality Calculated 278 270 - 300 mOsm/kg 05/27/2020 6:35 AM [facility] eGFR >60 >60 mL/min/1.7 3 m2 05/27/2020 6:35 AM [facility] Blood BLOOD SPECIMEN / Unknown Lab Venipuncture / Unknown 05/27/2020 5:31 AM CIVIL ENGINEERING DRAFTSPERSON 05/27/2020 6:08 AM CIVIL ENGINEERING DRAFTSPERSON Timmy Acevedo MD LAB - CHEMISTRY OR DERABLES [address] [place] [address], [place] [phone] * PATHOLOGY TISSUE (05/26/2020 12:02 PM CIVIL ENGINEERING DRAFTSPERSON) Case Report Surgical Pathology Report ? Case: [id number] ? Authorizing Provider: ??Timmy Acevedo MD ?Collected: ? 05/26/2020 12:02 PM ? Ordering Location: ? [facility] ?Received: ?05/26/2020 01:46 PM ? Pathologist: ? Loreta Verma MD ? Specimen: ?Kidney, Right, RIGHT Kidney ? 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 Glomeruli are uninvolved with no significant glomerulosclerosis. The proximal tubules are dilated with focal cell sloughing. The large vessels show intimal thickening but no significant vasculitis. There is no evidence of malignancy. 06/01/2020 1:45 PM [facility] Clinical History 49-year-old woman with nonfunctioning right kidney and recurrent UTIs. Operative procedure: right nephrectomy. 06/01/2020 1:45 PM [facility] Gross Description The requisition [...] No discrete masses or lesions are noted. Nurse Researcher sections are submitted as follows: A1 vascular and potential ureter margin, A2-A4 renal parenchyma. 06/01/2020 1:45 PM [facility] Disclaimer The performance characteristics of all immunohistochemical and indirect immunofluorescence stains (if any) cited in this report were determined by the Histopathology Laboratory of [facility]. Some of these tests were developed by [...] the attending (teaching) pathologist. 06/01/2020 1:45 PM [facility] Embedded Images 06/01/2020 1:45 PM [facility] Removal (Kidney, Right) 05/26/2020 12:02 PM CIVIL ENGINEERING DRAFTSPERSON 05/26/2020 1:46 PM CIVIL ENGINEERING DRAFTSPERSON Comment:Pre-op diagnosis: Non-Functioning kidney Timym Acevedo MD LAB - PATHOLOGY/CY TOLOGY ORDERABLES [facility] [address] [place], [place] [address] [phone] * IV PLACEMENT PERFORMABLE (05/26/2020 11:02 AM CIVIL ENGINEERING DRAFTSPERSON) Narrative Albina Johnson MD - 05/26/2020 11:02 AM Maci Garcia APRN-CRNA ? 05/26/2020 11:02 AM Peripheral IV Line Placement: Patient Location: ??OR Procedure: IV start ([id number]). Procedure Section: ?? Skin Prep: Chloraprep. Orientation: right Location: hand Local Anesthetic Used? ??No Catheter Gauge: 18 Catheter Length (in): 1.25 Number of Attempts: 1. Procedure Tolerance: tolerated well. Procedure Start Time: 05/26/2020 10:34 AM. Staff Section ?? Anesthesia Provider: Albina Johnson MD, Performed the procedure Albina Johnson MD GENERAL ANESTHESIA ORDERABLES * ETT LINE PERFORMABLE (05/26/2020 11:00 AM CIVIL ENGINEERING DRAFTSPERSON) Narrative Albina Johnson MD - 05/26/2020 11:00 AM CIVIL ENGINEERING DRAFTSPERSON Maci Perry APRN-CRNA ? 05/26/2020 11:02 AM Endotracheal Tube Placement: ? Patient Location: OR. Intubation Event Date/Time: ??05/26/2020 10:31 AM Procedure: intubation ([id number]). Procedure Section: ?? Sedation: IV sedation. Indications [...] Staff Section ?? Anesthesia Provider: Maci Perry, OPERATIONS SUPERINTENDENT-TARGETEER, Performed the procedure Albina Johnson MD GENERAL ANESTHESIA ORDERABLES * TYPE + SCREEN PANEL (05/26/2020 8:08 AM CIVIL ENGINEERING DRAFTSPERSON) Only the most recent of2 resultswithin the time period is included. Antibody Screen NEG 9:03 AM CIVIL ENGINEERING DRAFTSPERSON [facility] ABO Rh O POS 05/26/2020 9:03 AM CIVIL ENGINEERING DRAFTSPERSON [facility] Blood Bank BLOOD SPECIMEN / Unknown Venipuncture / Unknown 05/26/2020 8:08 AM CIVIL ENGINEERING DRAFTSPERSON 05/26/2020 8:23 AM CIVIL ENGINEERING DRAFTSPERSON Carlita Langley OPERATIONS SUPERINTENDENT-CLERICAL SUPPORT SPECIALIST LAB - BLOOD BANK ORDERABLES Performing Organization Address City/[facility]/ZIP Co de Phone Number [facility] [address] [place] [address], [place] [phone] * HCG URINE QUALITATIVE - POCT (IP) INTERFACED (05/26/2020 7:56 AM CIVIL ENGINEERING DRAFTSPERSON) HCG Qual Urine Negative Negative 05/26/2020 8:03 AM CIVIL ENGINEERING DRAFTSPERSON [facility] Urine URINE / Unknown 05/26/2020 7 :56 AM CIVIL ENGINEERING DRAFTSPERSON 05/26/2020 8:03 AM CIVIL ENGINEERING DRAFTSPERSON Timmy Acevedo MD LAB - POINT OF CAR E ORDERABLES Performing Organization Address City/[facility]/ZIP Co de Phone Number [facility] [address] [place] [address], [place] [phone] * HCG URINE QUAL POCT NOTIFICATION (05/26/2020 7:41 AM CIVIL ENGINEERING DRAFTSPERSON) Comment Notification Label Only - See Separate Report 05/26/2020 9:00 AM CIVIL ENGINEERING DRAFTSPERSON [facility] Urine URINE / Unknown 05/26/2020 7 :41 AM CIVIL ENGINEERING DRAFTSPERSON 05/26/2020 7:42 AM CIVIL ENGINEERING DRAFTSPERSON Michelle Mayorga OPERATIONS SUPERINTENDENT-CLERICAL SUPPORT SPECIALIST LAB - URINALYSIS ORDERABLES [facility] [address] [place] [address], [place] [phone] * SARS-COV-2 (COVID-19) PRE-SURICAL/PROCEDURE (05/22/2020 10:32 AM CIVIL ENGINEERING DRAFTSPERSON) COVID-19 PCR Not detected Not detected 05/22/2020 8:14 PM CIVIL ENGINEERING DRAFTSPERSON [facility] Microbiology SPECIMEN FROM NASOPHARYNGEAL STRUCTURE / Unknown Collection / Unknown 05/22/2020 10:32 AM CIVIL ENGINEERING DRAFTSPERSON 05/22/2020 12:16 PM CIVIL ENGINEERING DRAFTSPERSON Narrative [facility] - 05/22/2020 8:14 PM CIVIL ENGINEERING DRAFTSPERSON This nucleic acid amplification assay performance was validated by [facility]. This test has been authorized [...] Timmy Acevedo MD LAB - MICROBIOLOGY ORDERABLES [facility] [address] [place] [address], [place] [phone] * CULTURE URINE (05/03/2020 2:18 PM CIVIL ENGINEERING DRAFTSPERSON) Culture Urine <10,000 CFU/mL urogenital jaylyn AMA 05/05/2020 1:03 AM CIVIL ENGINEERING DRAFTSPERSON [facility] Urine URINE SPECIMEN OBTAINED BY CLEAN CATCH PROCEDURE / Unknown Collection / Unknown 05/03/2020 2:18 PM CIVIL ENGINEERING DRAFTSPERSON 05/03/2020 2:59 PM CIVIL ENGINEERING DRAFTSPERSON Timmy Acevedo MD LAB - MICROBIOLOGY ORDERABLES [facility] [address] [place], [place] [address], [place] [phone] * CBC WITH DIFFERENTIAL (05/03/2020 2:11 PM CIVIL ENGINEERING DRAFTSPERSON) WBC 4.9 3.5 - 10.5 10? 3 /uL 05/03/2020 3:25 PM [facility] RBC 4.13 3.90 - 5.00 10? 6 /uL 05/03/2020 3:25 PM [facility] Hemoglobin 12.4 12.0 - 15.5 g/dL 05/03/2020 3:25 PM [facility] Hematocrit 38.5 35.0 - 45.0 % 05/03/2020 3:25 PM [facility] MCV 93.2 81.0 - 97.0 fL 05/03/2020 3:25 PM [facility] MCH 30.0 28.0 - 34.0 pg 05/03/2020 3:25 PM [facility] MCHC 32.2 32.0 - 36.0 g/dL 05/03/2020 3:25 PM [facility] Platelet Count 253 150 - 400 10? 3 /uL 05/03/2020 3:25 PM [facility] RDW-SD 44.9 36.0 - 50.0 fL 05/03/2020 3:25 PM [facility] RDW-CV 13.2 11.2 - 14.8 % 05/03/2020 3:25 PM [facility] MPV 10.9 9.3 - 12.8 fL 05/03/2020 3:25 PM [facility] nRBC Absolute 0.00 0 10? 3 /uL 05/03/2020 3:25 PM [facility] nRBC Auto 0.0 0 /100 WBC 05/03/2020 3:25 PM [facility] Neutrophils % 65.6 35.0 - 70.0 % 05/03/2020 3:25 PM [facility] Lymphocytes % 23.8 19.7 - 55.1 % 05/03/2020 3:25 PM [facility] Monocytes % 9.2 3.0 - 15.0 % 05/03/2020 3:25 PM [facility] Eosinophils % 0.8 0.0 - 6.0 % 05/03/2020 3:25 PM [facility] Basophil % 0.6 0.0 - 1.5 % 05/03/2020 3:25 PM [facility] Neutrophils Absolute 3.2 1.6 - 7.0 10? 3 /uL 05/03/2020 3:25 PM [facility] Lymphocyte Absolute 1.2 0.8 - 2.9 10? 3 /uL 05/03/2020 3:25 PM [facility] Monocytes Absolute 0.45 0.14 - 0.66 10? 3 /uL 05/03/2020 3:25 PM [facility] Eosinophils Absolute 0.04 0.00 - 0.45 10? 3 /uL 05/03/2020 3:25 PM [facility] Basophils Absolute 0.03 0.00 - 0.06 10? 3 /uL 05/03/2020 3:25 PM [facility] Immature Granulocytes % 0.0 0.0 - 1.0 % 05/03/2020 3:25 PM [facility] Blood BLOOD SPECIMEN / Unknown Lab Venipuncture / Unknown 05/03/2020 2:11 PM CIVIL ENGINEERING DRAFTSPERSON 05/03/2020 3:11 PM CIVIL ENGINEERING DRAFTSPERSON Timmy Acevedo MD LAB - HEMATOLOGY O RDERABLES [facility] [address] [place] [address], [place] [phone] * LC RENAL SCAN W FLOW AND FUNCTION (03/14/2020 9:28 AM CIVIL ENGINEERING DRAFTSPERSON) Anatomical Region Laterality Modality Abdomen Nuclear Medicine 03/14/2020 1:14 PM CIVIL ENGINEERING DRAFTSPERSON Impressions 03/14/2020 1:19 PM CIVIL ENGINEERING DRAFTSPERSON 1. Normal function of the enlarged left kidney with no evidence of obstruction. 2. No significant function of the atrophied right kidney. 3. Differential function is 97% left kidney and 3% right kidney. *Reading Radiologist: Albaro Eckert on 03/14/2020 at 1:19 PM Narrative 03/14/2020 1:19 PM CIVIL ENGINEERING DRAFTSPERSON MAG3 renal scan without pharmacologic intervention. HISTORY: [...] on 03/14/2020 at 1:19 PM Soheila Gonzalez APRN-CLERICAL SUPPORT SPECIALIST [place] ORDERABLES * URINALYSIS AUTO - POINT OF CARE (AMB) [facility] (02/22/2020 12:59 PM CIVIL ENGINEERING DRAFTSPERSON) Glucose UA neg Bilirubin UA POCT neg Ketones UA POCT neg Specific [place] UA 1.015 Blood Urine POCT 1+ pH UA 6.0 Protein UA neg Urobilinogen UA 3.5 Nitrite UA neg WBC UA neg Urine URINE / Unknown 02/22/2020 1 2:59 PM CIVIL ENGINEERING DRAFTSPERSON Soheila Gonzalez APRN-CLERICAL SUPPORT SPECIALIST LAB - POINT O F CARE ORDERABLES Care Teams Copy Chaser Relationship Specialty Start Date End Date Kimberly Lozano MD [address] [place] [address] PCP - General Family Medicine 03/14/20
--- OUTSIDE RECORDS SUMMARY | 2024-05-01 16:08 | XMS_ITS | Clinical Summary ---
Author Organization [facility] Address [address] [place] [address] Care Team Providers Care Geospatial Program Management Officer Name Role Phone Kimberly Lozano MD Primary Care Provider + Source Comments [facility],non-owned Affiliates and Associated Physician Practices is amultiple site organization consisting of ambulatory clinics and hospital sitesin [place], [place], [place] and [place]. This disclosure is being madepursuant to the Care Everywhere program and may not contain all information available regarding this patient. Last updated 17.[facility] Allergies Active Allergy Reactions Criticality Noted Date [...] Comments Blood Pressure 133/82 06/10/2020 7:56 AM NUTRITION WORKER Pulse 75 06/10/2020 7:56 AM NUTRITION WORKER Temperature 36.1 ??C (97 ??F) 06/10/2020 7:56 AM NUTRITION WORKER Respiratory Rate 18 05/27/2020 11:15 AM NUTRITION WORKER Oxygen Saturation 100% 06/10/2020 7:56 AM NUTRITION WORKER Inhaled Oxygen Concentration - - Weight 55.8 kg (123 lb) 06/10/2020 7:56 AM NUTRITION WORKER Height 165.1 cm (5' 5 ) 06/10/2020 7:56 AM NUTRITION WORKER Body Mass Index 20.47 06/10/2020 7:56 AM NUTRITION WORKER Plan of Treatment Health Maintenance Due Date [...] 1:07 PM 05/27/2020 4:26 PM Care Teams Geospatial Program Management Officer Relationship Specialty Start Date End Date Kimberly Lozano MD [address] [place] [id number] PCP - General Family Medicine 03/14/20
--- OUTSIDE RECORDS SUMMARY | 2024-05-01 16:08 | XMS_ITS | CONTINUITY OF CARE DOCUMENT ---
Author Name joonshashank joonshashank Address Unknown Organization [facility] Address [address] [place] [address] Phone [phone] Care Team Providers Care Manager Web Application Name Role Phone Jimmie COBOS, Violette Murphy Unavailable [phone] RANDY JUAN MD Unavailable YESSICA COBOS, RANDY Unavailable INSURANCE PROVIDERS Payer name Policy type / Coverage type [facility] [employer] [place] MED[place] (2) Medicaid [id number]
--- OUTSIDE RECORDS SUMMARY | 2024-05-01 16:08 | XMS_ITS | Referral Summary ---
Author Organization [facility] Address [address] [place] [address] Care Team Providers Care Director E Learning Name Role Phone Kimberly Lozano MD Primary Care Provider + Source Comments [facility],non-owned Affiliates and Associated Physician Practices is amultiple site organization consisting of ambulatory clinics and hospital sitesin [place], [place], [place] and [place]. This disclosure is being madepursuant to the Care Everywhere program and may not contain all information available regarding this patient. Last updated 17.[facility] Allergies Active Allergy Reactions Criticality Noted Date [...] Comments Blood Pressure 133/82 06/10/2020 7:56 AM SALES STRATEGY MANAGER Pulse 75 06/10/2020 7:56 AM SALES STRATEGY MANAGER Temperature 36.1 ??C (97 ??F) 06/10/2020 7:56 AM SALES STRATEGY MANAGER Respiratory Rate 18 05/27/2020 11:15 AM SALES STRATEGY MANAGER Oxygen Saturation 100% 06/10/2020 7:56 AM SALES STRATEGY MANAGER Inhaled Oxygen Concentration - - Weight 55.8 kg (123 lb) 06/10/2020 7:56 AM SALES STRATEGY MANAGER Height 165.1 cm (5' 5 ) 06/10/2020 7:56 AM SALES STRATEGY MANAGER Body Mass Index 20.47 06/10/2020 7:56 AM SALES STRATEGY MANAGER Functional Status Functional Status Response Date of [...] 1:07 PM 05/27/2020 4:26 PM Care Teams Director E Learning Relationship Specialty Start Date End Date Kimberly Lozano MD [address] [place] [id number] PCP - General Family Medicine 03/14/20
--- OUTSIDE RECORDS SUMMARY | 2024-05-01 16:09 | XMS_ITS | Referral Summary ---
Author Organization [facility] HealthCare Care Team Providers Care Scrap Materials Buyer Name Role Phone Kimberly Lozano MD Primary Care Prov ider Encounters Date Type Department Care Team Description 04/24/2024 7:26 AM WIRE BRUSHER - 04/24/2024 11:59 PM WIRE BRUSHER Hospital Encounter [facility] [address] [place] [address] Advanced Medicine [address] [place] [address] Bradford Tapia MD Lumbar radiculopathy (Primary Dx) Discharge Disposition: Discharge to home or self care 02/14/2024 9:07 PM WIRE BRUSHER - 02/14/2024 11:59 PM WIRE BRUSHER Hospital Encounter [facility] [address] [place] [id number] Discharge Disposition: Discharge to home or self care 02/14/2024 2:50 PM WIRE BRUSHER - 02/14/2024 11:59 PM WIRE BRUSHER Hospital Encounter [facility] [address] [place] [address] Advanced [facility] [address] [place] [address] Bradford Tapia MD Lumbar radiculopathy Discharge Disposition: Discharge to home or self care 02/11/2024 Telephone [facility] [address] [place] [address] Advanced Medicine [address] [place] [address] Bradford Tapia MD PMC Preprocedure 02/05/2024 12:40 PM WIRE BRUSHER - 02/05/2024 11:59 PM WIRE BRUSHER Hospital Encounter [facility] [address] [facility] [address] [place] [address] Bradford Tapia MD Lumbar radiculopathy (Primary Dx) [...] on file Legal Sex Female 1:45 AM WIRE BRUSHER Gender Identity Not on file Sexual Orientation Not on file Last Filed Vital Signs Vital Sign Reading Time Taken Comments Blood Pressure 105/68 04/24/2024 7:37 AM WIRE BRUSHER Pulse 83 04/24/2024 7:37 AM WIRE BRUSHER Temperature 36.5 ??C (97.7 ??F) 04/24/2024 7:37 AM CS T Respiratory Rate 14 04/24/2024 7:37 AM WIRE BRUSHER Oxygen Saturation 99% 04/24/2024 7:37 AM WIRE BRUSHER Inhaled Oxygen Concentration - - Weight 59 kg (130 lb) 02/14/2024 3:01 PM WIRE BRUSHER Height 165.1 cm (5' 5 ) 02/14/2024 3:01 PM WIRE BRUSHER Body Mass Index 21.63 02/14/2024 3:01 PM WIRE BRUSHER Plan of Treatment Not on file Goals Goal Patient Goal Type Associated Problems Recent Progress Patient-Stated? Author CCM Chronic Pain Care Plan Chronic Care Management On track(2024 7:39 AM WIRE BRUSHER) No Farrah Vera, RN Note: Problem: Chronic Pain Goals: 1. Minimize further functional decline 2. Maximize quality of life 3. Control pain Strategies: - Activity/exercise program recommendation - Conservative stepwise pain medicine strategy with multi-disciplinary approach - Recommend healthy lifestyle strategies and compensatory methods as needed Procedures Procedure Name Priority Date/Time Associated Diagnosis Comments NEURO MR OUTSIDE REFERENCE Routine 02/14/2024 9:07 PM WIRE BRUSHER PAIN MGMT IMAGING LUMBAR/SACRAL SELECTIVE NERVE ROOT INJ (TFE) LEFT Schedule Routine, Read Routine (OP Routine) 02/14/2024 4:27 PM WIRE BRUSHER Lumbar radiculopathy from Last 3 Months Results * Neuro MR Outside Reference (02/14/2024 9:07 PM WIRE BRUSHER) Impressions [facility] - 02/14/2024 9:07 PM WIRE BRUSHER These images are for Reference purposes only and have not been reviewed by [facility]. ??There will be no report generated by a [facility] Radiologist. Narrative [facility] - 02/14/2024 9:07 PM WIRE BRUSHER EXAMINATION: ??Images For Reference Purposes Only Bradford SOTELO MRI PROCEDURES Fi nal Result [facility] * Imaging Lumbar/Sacral Selective Nerve Root INJ (TFE) Left (04223) (02/14/2024 4:27 PM WIRE BRUSHER) Narrative [facility] - 02/14/2024 4:27 PM WIRE BRUSHER The images from this study are not interpreted by Radiology. ??Please refer to the physician's procedure / OR operative note. Bradford Gupta MD IMG PAIN MGMT PROCEDU RES Final Result Performing Organization Address City/[facility]/ZIP Co de Phone Number [facility] from Last 3 Months Insurance [facility] Care Teams Scrap Materials Buyer Relationship Specialty Start Date End Date Kimberly Lozano MD [address] [place] [id number] PCP - General Family Medicine 11/08/22
--- OUTSIDE RECORDS SUMMARY | 2024-05-01 16:09 | XMS_ITS | Clinical Summary ---
Author Organization [facility] HealthCare Care Team Providers Care Entomology Professor Name Role Phone Kimberly Lozano MD Primary [...] Department Care Team Description 04/24/2024 7:26 AM CHIEF DEPUTY - 04/24/2024 11:59 PM CHIEF DEPUTY Hospital Encounter [facility] [address] [place] [address] for [facility] Medicine [address] [place] [address] Bradford Tapia MD Lumbar radiculopathy (Primary Dx) Discharge Disposition: Discharge to home or self care 02/14/2024 9:07 PM CHIEF DEPUTY - 02/14/2024 11:59 PM CHIEF DEPUTY Hospital Encounter [facility] [address] [place] [address] Discharge Disposition: Discharge to home or self care 02/14/2024 2:50 PM CHIEF DEPUTY - 02/14/2024 11:59 PM CHIEF DEPUTY Hospital Encounter [facility] [address] [place] [address] for Advanced Medicine [address] [place] [address] Bradford Tapia MD Lumbar radiculopathy Discharge Disposition: Discharge to home or self care 02/11/2024 Telephone [facility] [address] [place] [address] for [facility] Medicine [address] [place] [address] Bradford Tapia MD [facility] Preprocedure 02/05/2024 12:40 PM CHIEF DEPUTY - 02/05/2024 11:59 PM CHIEF DEPUTY Hospital Encounter [facility] [address] [place] [address] for Advanced Medicine [address] [place] [address] Bradford Tapia MD Lumbar radiculopathy (Primary Dx) [...] on file Legal Sex Female 1:45 AM CHIEF DEPUTY Gender Identity Not on file Sexual Orientation Not on file Obstetrics History Last Filed Vital Signs Vital Sign Reading Time Taken Comments Blood Pressure 105/68 04/24/2024 7:37 AM CHIEF DEPUTY Pulse 83 04/24/2024 7:37 AM CHIEF DEPUTY Temperature 36.5 ??C (97.7 ??F) 04/24/2024 7:37 AM CS T Respiratory Rate 14 04/24/2024 7:37 AM CHIEF DEPUTY Oxygen Saturation 99% 04/24/2024 7:37 AM CHIEF DEPUTY Inhaled Oxygen Concentration - - Weight 59 kg (130 lb) 02/14/2024 3:01 PM CHIEF DEPUTY Height 165.1 cm (5' 5 ) 02/14/2024 3:01 PM CHIEF DEPUTY Body Mass Index 21.63 02/14/2024 3:01 PM CHIEF DEPUTY Plan of Treatment Health Maintenance Due Date [...] Chronic Care Management On track(2024 7:39 AM CHIEF DEPUTY) Farrah Fischer, RN Note: Problem: Chronic Pain Goals: 1. Minimize further functional decline 2. Maximize quality of life 3. Control pain Strategies: - Activity/exercise program recommendation - Conservative stepwise pain medicine strategy with multi-disciplinary approach - Recommend healthy lifestyle strategies and compensatory methods as needed Procedures Procedure Name Priority Date/Time Associated Diagnosis Comments NEURO MR OUTSIDE REFERENCE Routine 02/14/2024 9:07 PM CHIEF DEPUTY PAIN MGMT IMAGING LUMBAR/SACRAL SELECTIVE NERVE ROOT INJ (TFE) LEFT Schedule Routine, Read Routine (OP Routine) 02/14/2024 4:27 PM CHIEF DEPUTY Lumbar radiculopathy from Last 3 Months Results * Neuro MR Outside Reference (02/14/2024 9:07 PM CHIEF DEPUTY) Impressions [facility] - 02/14/2024 9:07 PM CHIEF DEPUTY These images are for Reference purposes only and have not been reviewed by [facility]. ??There will be no report generated by a [facility] Radiologist. Narrative [facility] - 02/14/2024 9:07 PM CHIEF DEPUTY EXAMINATION: ??Images For Reference Purposes Only us Bradford SOTELO MRI PROCEDURES Fi nal Result [facility] * Imaging Lumbar/Sacral Selective Nerve Root INJ (TFE) Left ([id number]) (02/14/2024 4:27 PM CHIEF DEPUTY) Narrative [facility] - 02/14/2024 4:27 PM CHIEF DEPUTY The images from this study are not interpreted by Radiology. ??Please refer to the physician's procedure / OR operative note. Bradford Tieppo Francio MD IMG PAIN MGMT PROCEDU RES Final Result [facility] from Last 3 Months Insurance [facility] [id number] Care Teams Entomology Professor Relationship Specialty Start Date End Date Kimberly Lozano MD [address] [place] [address] PCP - General Family Medicine 11/08/22
--- OUTSIDE RECORDS SUMMARY | 2024-05-01 16:09 | XMS_ITS | Clinical Summary ---
Author Organization [facility] Address [address] [place] [address] Phone Care Team Providers Care History Teacher Name Role Phone Kimberly Lozano MD Primary [...] Insurance MEDICAID [employer] Care Teams History Teacher Relationship Specialty Start Date End Date Kimberly Lozano MD [address] [address] PCP - General Family Medicine 07/26/23
== END 2024-05-01 16:54 | disposition left against medical advice (07) ==
LOC: ANHED 16:07
PROVIDERS: Emergency Provider Physician Assistant; PCP Family Medicine
DX: S09.90XA Unspecified injury of head, initial encounter (principal); Z90.49 Acquired absence of other specified parts of digestive tract; Z90.5 Acquired absence of kidney; W22.8XXA Striking against or struck by other objects, initial encounter
CPT/HCPCS: 70450; 72125; 99284